=== PATIENT | female | born 1950 | race Hispanic/Latino ===

== ENCOUNTER 2017-05-20 04:11 | Inpatient (IN) | payer MEDICARE ==
[2017-05-20 04:55] LABS: #Lymphocytes 1.2 thou/uL (1.20-3.40); #Monocytes 0.5 thou/uL (0.11-0.59); #Neutrophils 3.3 thou/uL (1.40-6.50); %Basophils 0.5 % (0.0-1.0); %Eosinophils 0.8 % (0.0-10.0); %Lymphocytes 24.2 % (21.0-51.0); %Neutrophils 64.4 % (42.0-75.0); Hemoglobin 12.6 g/dL (12.0-16.0); Mean Corpuscular HGB CONC 33.3 g/dL (32.0-36.0); Mean Corpuscular Hemoglobin 29.1 pg (27.0-31.0); Mean Corpuscular Volume 87.3 fl (81.0-99.0); Mean Platelet Volume 6.6 fL (7.4-10.4); Platelet Count 251 thou/uL (130-400); RBC Distribution Width 13.5 % (11.5-14.5); Red Blood Cell (RBC) Count 4.33 mill/uL (4.20-5.40); White Blood Cell (WBC) Count 5.1 thou/uL (4.8-10.8)
[2017-05-20 05:01] LABS: Prothrombin Time 13.7 SEC (12.0-14.7)
[2017-05-20 05:02] LABS: PTT 45.2 SEC (22.9-36.1)
[2017-05-20 05:03] LABS: D-Dimer Test 2.64 *mcg/mL (0.27-0.43)
[2017-05-20 05:04] LABS: ALT (SGPT) 11 U/L (8-55); AST (SGOT) 25 U/L (5-34); Albumin 3.8 g/dL (3.4-4.8); Alkaline Phosphatase 149 U/L (40-150); Anion Gap 18 mmol/L (10-20); BUN (Urea Nitrogen) 11 mg/dL (9.8-20.1); Bilirubin, Total 0.8 mg/dL (0.2-1.2); CK (CPK) 91 U/L (29-168); Calc. Creatinine Clearance 0 mL/min (70-130); Calcium 9.4 mg/dL (7.8-10.44); Carbon Dioxide 18 mmol/L (23-31); Chloride 97 mmol/L (98-107); Estimated GFR-MDRD 64; Globulin 2.7 g/dL (2.4-3.5); Potassium 3.6 mmol/L (3.5-5.1); Protein, Total 6.5 g/dL (6.0-8.3); Sodium 129 mmol/L (136-145)
[2017-05-20 05:06] LABS: Glucose 53 mg/dL (80-115)
[2017-05-20] MEDS ORDERED: Dextrose 50% Abboject 50 ML SYRINGE ONE (05:09)
[2017-05-20 05:11] LABS: Troponin I Less than 0.010 ng/mL (< 0.028)
[2017-05-20] MEDS ORDERED: Furosemide 20 MG/2 ML VIAL ONE (06:34)
[2017-05-20 07:31] LABS: Troponin I Less than 0.010 ng/mL (< 0.028)
[2017-05-20] MEDS ORDERED: Mag-Al 1200 mg/1200 mg/30 ML UDCUP PO PRN (07:58)
[2017-05-20] MEDS ORDERED: Calcium Carbonate 500 MG ChewTAB PO PRN (07:58)
[2017-05-20] MEDS ORDERED: Milk Of Magnesia 30 ML UDCUP PO PRN (07:58)
[2017-05-20] MEDS ORDERED: Senokot 8.6 MG TAB PO PRN (07:58)
[2017-05-20] MEDS ORDERED: Guaifenesin DM 100-10/5 ML UDCUP PO PRN (07:58)
--- NOTE | 2017-05-20 08:07 | RAD ---
CHEST 1 VIEW: COMPARISON: 08/26/16. HISTORY: Dyspnea. FINDINGS: Stable vertebroplasty change. There is atherosclerosis of the aorta. Normal cardiac silhouette. Th e lungs and pleural spaces are clear. No pneumothorax or osseous abnormalities. IMPRESSION: 1. No acute cardiopulmonary process. 2. Atherosclerosis. POS: [facility]
[2017-05-20 08:21] LABS: Cardiac Risk 3.1 (Less than 4.5)
[2017-05-20] MEDS ORDERED: Hydroxychloroquine Sulfate 200 MG TAB PO SCH (09:00)
--- NOTE | 2017-05-20 09:40 | CT ---
PRELIMINARY REPORT/[facility]/EMERGENCY AFTER HOURS PROCEDURE: EXAM: CT Angiography Chest With Intravenous Contrast CLINICAL HISTORY: 66 years old, female; Signs and symptoms; Dyspnea and shortness of breath; Patient HX: F66 presents t o ed for SOB. Pt reports SOB that woke her up from sleep around 2am. Pt denies using oxygen at home. Pt reports decreased appetite for the past few weeks. Pt reports nausea and vomiting. Pt denies fever , chills, or cough. Pt reports HX of similar symptoms last year and reports it was due to pneumonia. Pt denies cardiac HX. TECHNIQUE: Axial computed tomographic angiography images of the chest with intravenous contrast using pulmonary embolism protocol. COMPARISON: No relevant prior studies available. FINDINGS: Artifacts: Examination is limited due to motion. Pulmonary arteries: No embolism is identified in the main, right, left or lobar pulmonary arteries. Evaluation of smaller pulmonary arteries is limited due to motion. Aorta: Calcifications in the barrow of the aorta and other arteries are consistent with atherosclerosi s. No thoracic aortic aneurysm or dissection is identified. Lungs: There are widespread groundglass opacities in both lungs. There is bilateral pulmonary septal thickening. There are bilateral groundglass pulmonary opacities. There are small consolidations in th e lower lobes. Pleural space: Unremarkable. No significant effusion. No pneumothorax. Heart: The heart is enlarged. There are coronary artery calcifications. There may be left ventricular hypertrophy. Bones/joints: There are old left rib fractures. There is evidence of vertebroplasty at multiple level s. No dislocation. Soft tissues: Unremarkable. Lymph nodes: There are prominent bilateral hilar lymph nodes. Spleen: Calcifications in the spleen are consistent with granulomas. IMPRESSION: 1. No central pulmonary embolism identified. 2. Evidence of pulmonary edema. 3. Small lower lobe consolidations that may represent atelectasis or pneumonia. 4. Additional findings as above. Thank you for allowing us to participate in the care of your patient. Dictated and Authenticated by: Obi Dodson MD 05/20/2017 6:14 AM Central Time ([place] & [place]) FINAL REPORT CT ANGIOGRAM OF THE CHEST: HISTORY: Dyspnea. COMPARISON: 08/26/16. TECHNIQUE: CT angiogram of the chest was performed in the axial plane. Bilateral oblique and coronal 3-dimensio nal reformatted images are submitted for interpretation. FINDINGS: This report is in agreement with the preliminary report by [facility]. No evidence of pulmonary embolism of the central pulmonary arteries. Evaluation of lobar, segment, and subsegmental arteries is limited due to timing of bolus and motion degradation. Patchy ground-glass opacities and septal thickening in the lung parenchyma. Correlate for pulmonary edema. POS: [facility]
[2017-05-20 10:51] LABS: Troponin I Less than 0.010 ng/mL (< 0.028)
[2017-05-20 11:07] VITALS: BMI 27.6
[2017-05-20] MEDS ORDERED: Dextrose 50% Abboject 50 ML SYRINGE SLOW IVP PRN (11:52)
[2017-05-20] MEDS ORDERED: Dextrose 5% in Water 1,000 ML IV PRN (11:52)
[2017-05-20] MEDS ORDERED: ISOVUE-370 76%-LOCM 1 ML ONE (13:38)
[2017-05-20] MEDS: Docusate 100 MG CAP PO SCH ×2 (14:00→20:26)
[2017-05-20] MEDS: Amlodipine 10 MG TAB PO SCH (14:00)
[2017-05-20] MEDS: Enoxaparin Sodium 40 MG/0.4 ML SYRINGE SC SCH (14:00)
[2017-05-20] MEDS: Famotidine 20 MG TAB PO SCH ×2 (14:00→20:26)
[2017-05-20] MEDS: Carvedilol 3.125 MG TAB PO SCH ×2 (14:00→20:25)
[2017-05-20] MEDS: Gabapentin 100 MG CAP PO SCH ×2 (14:00→20:26)
--- NOTE | 2017-05-20 16:35 | NM ---
NUCLEAR MEDICINE CARDIAC STRESS MYOCARDIAL PERFUSION SCAN WITH SPECT IMAGING: HISTORY: Exertional shortness of breath, chest pain. FINDINGS: Examination was performed using 29 mCi 99m Technetium sestamibi on the stress and 9 mCi on the restin g images. This shows a normal distribution of radiopharmaceutical without signs of ischemia or scar. WALL MOTION: There is symmetric contractility to the ventricle. LEFT VENTRICULAR EJECTION FRACTION: The calculated left ventricular ejection fraction is 84%. IMPRESSION: Unremarkable myocardial perfusion scan. POS: [facility]
[2017-05-20] MEDS ORDERED: Regadenoson 0.4 MG/5 ML SYRINGE ONE (16:41)
[2017-05-20] MEDS: Albuterol Sulfate 2.5 mg/3 ml Neb NEB SCH ×2 (19:00→19:03)
--- NOTE | 2017-05-20 19:01 | HP ---
REASON FOR ADMISSION: Exertional shortness of breath. HISTORY OF PRESENTING ILLNESS: The patient gives history of going to [place] early in the morning a round 3:00 a.m. While she was trying to come back, the patient had sudden onset of shortness of lucy th. She had similar episode 2 years back and had saturations dropping down to 72% then. This mornin g too her saturations dropped to 69%. Her fingerstick glucose at home was 69 and on arrival here was 53. The patient states she has loss of appetite from 3 days. No complaints of fever or chest pain as such. No complaints of cough or expectoration. PAST MEDICAL AND SURGICAL HISTORY: History of lupus from last 20 years and follows up with Dr. Emeterio basurto. She has history of asthma, follows up with Dr. De Guzman. The patient also follows up with Dr. Se bear for apparently kidney issues, but currently it is within normal limits. She also follows up w [facility] from Dr. Garcia for her multiple vertebral fractures and has had recent kyphoplasty as well. She has had shots placed to bilateral hips a month back and last week she had shots placed to the shoulder and in the lower back area. Hysterectomy; cataract surgeries; history of diverticul itis with partial colon removal; and history of asthma, which appears to be fairly stable with the pa tient using nebulizer once a day and her inhaler on a p.r.n. basis. CURRENT MEDICATIONS: The patient is on Norvasc 10 mg p.o. daily, azathioprine 50 mg p.o. daily, Cola ce 100 mg p.o. twice daily, gabapentin 300 mg p.o. twice daily, hydroxychloroquine 300 mg p.o. twice daily, Protonix 40 mg p.o. daily. ALLERGIES: PSEUDOEPHEDRINE and MORPHINE. MORPHINE causes hallucinations. PERSONAL HISTORY: Does not abuse alcohol or drugs. No history of smoking. Lives with her . FAMILY HISTORY: Mom at the age of 42 years. She of aneurysm and complications. She has h ad history of hypertension as well. Father at the age of 87 years. He has had history of CHF. REVIEW OF SYSTEMS: The following complete review of systems was negative, unless otherwise mentioned in the HPI or below: Constitutional: Weight loss or gain, ability to conduct usual activities. Skin: Rash, itching. Eyes: Double vision, pain. ENT/Mouth: Nose bleeding, neck stiffness, pain, tenderness. Cardiovascular: Palpitations, dyspnea on exertion, orthopnea. Respiratory: Shortness of breath, wheezing, cough, hemoptysis, fever or night sweats. Gastrointestinal: Poor appetite, abdominal pain, heartburn, nausea, vomiting, constipation, or diarr hea. Genitourinary: Urgency, frequency, dysuria, nocturia. Musculoskeletal: Pain, swelling. Neurologic/Psychiatric: Anxiety, depression. Allergy/Immunologic: Skin rash, bleeding tendency. PHYSICAL EXAMINATION: GENERAL: The patient is a 66-year-old female, who is currently not in any acute distress. VITAL SIGNS: Blood pressure on arrival was 100/66, pulse 100 per minute, respiratory rate 16 per min minerva, temperature 98 degrees Fahrenheit, saturating 100% on room air. NECK: Supple, no elevated JVD. HEENT: Eyes: Extraocular muscles intact. Pupils are reacting to light. Oral cavity: Mucous membr anes are moist. No exudates or congestion. CARDIOVASCULAR: S1, S2 heard. Regular rhythm. RESPIRATORY: Air entry 1+ bilateral. There is basal rales plus, scattered rhonchi plus, no wheezes. ABDOMEN: Soft, bowel sounds heard. No tenderness, rigidity or guarding. EXTREMITIES: No peripheral edema or calf tenderness. VASCULAR SYSTEM: Peripheral pulses 1+ bilateral, no ischemic ulcerations or gangrene. CENTRAL NERVOUS SYSTEM: No gross focal deficits seen. The patient is alert and oriented well. PSYCHIATRIC: The patient's mood is euthymic. No hallucinations or delusions. LABORATORY AND X-RAY FINDINGS: Sodium 129, serum bicarbonate 18, BUN 11, creatinine 0.8, serum gluco se was 53 on arrival, lactic acid 1.5. Liver enzymes are within normal limits. Troponin x2 is negat sharri. BNP is 39, albumin is 3.8. INR is 1.0. PT 13, PTT 45. White count of 5, hemoglobin and hemat ocrit 12 and 37, platelet count 251 with 64% neutrophils, MCV is 87. CT angio chest done shows no ev idence of PE. There is a questionable ground glass opacities with septal thickening in the lung pare nchyma to correlate for pulmonary edema. EKG done shows normal sinus rhythm at 97 beats per minute. CLINICAL IMPRESSION AND PLAN: The patient will be under observation on telemetry for new onset exert ional dyspnea. She has received a dose of Lasix 40 mg in the ER. The patient has multiple risk fact ors for heart disease. She has had a CT angio chest done, which showed no evidence of pulmonary embo lism. We will obtain echo with 2D Doppler for left ventricular function and a nuclear stress test as well. The patient does not recall having had a stress test in her life so far. She will also be on albuterol nebulizer q.[address] her on aspirin and continue on Norvasc, azathioprine, hydroxychloroquine, gabapentin, and Colace as before. We will closely monitor her on telemetry.
[2017-05-20] MEDS: Hydroxychloroquine Sulfate 200 MG TAB PO SCH (20:26)
[2017-05-21] MEDS: Albuterol Sulfate 2.5 mg/3 ml Neb NEB SCH ×4 (00:24→19:51)
[2017-05-21 05:02] LABS: #Eosinphils 0.1 thou/uL (0.0-0.7); #Lymphocytes 0.9 thou/uL (1.20-3.40); #Monocytes 0.6 thou/uL (0.11-0.59); %Basophils 0.5 % (0.0-1.0); %Eosinophils 1.8 % (0.0-10.0); %Lymphocytes 19.7 % (21.0-51.0); %Monocytes 12.1 % (0.0-10.0); Hemoglobin 12.2 g/dL (12.0-16.0); Mean Corpuscular HGB CONC 34.3 g/dL (32.0-36.0); Mean Corpuscular Hemoglobin 29.6 pg (27.0-31.0); Mean Corpuscular Volume 86.3 fl (81.0-99.0); Mean Platelet Volume 6.8 fL (7.4-10.4); Platelet Count 233 thou/uL (130-400); RBC Distribution Width 13.8 % (11.5-14.5); Red Blood Cell (RBC) Count 4.11 mill/uL (4.20-5.40); White Blood Cell (WBC) Count 4.6 thou/uL (4.8-10.8)
[2017-05-21 05:14] LABS: Anion Gap 15 mmol/L (10-20); BUN (Urea Nitrogen) 11 mg/dL (9.8-20.1); Calc. Creatinine Clearance 46 mL/min (70-130); Carbon Dioxide 20 mmol/L (23-31); Chloride 99 mmol/L (98-107); Estimated GFR-MDRD 46; Potassium 3.5 mmol/L (3.5-5.1); Sodium 130 mmol/L (136-145)
[2017-05-21 05:15] LABS: Calcium 8.6 mg/dL (7.8-10.44); Glucose 66 mg/dL (80-115)
[2017-05-21] MEDS: Hydroxychloroquine Sulfate 200 MG TAB PO SCH ×2 (09:44→20:39)
[2017-05-21] MEDS: Aspirin 325 MG TAB PO SCH (09:44)
[2017-05-21] MEDS: Amlodipine 10 MG TAB PO SCH (09:45)
[2017-05-21] MEDS: Famotidine 20 MG TAB PO SCH ×2 (09:45→20:37)
[2017-05-21] MEDS: azaTHIOprine 50 MG TAB PO SCH (09:45)
[2017-05-21] MEDS: Gabapentin 100 MG CAP PO SCH ×2 (09:45→20:38)
[2017-05-21] MEDS: Docusate 100 MG CAP PO SCH ×2 (09:45→20:37)
[2017-05-21] MEDS: Enoxaparin Sodium 40 MG/0.4 ML SYRINGE SC SCH (09:45)
[2017-05-21] MEDS: Carvedilol 3.125 MG TAB PO SCH ×2 (09:45→20:38)
[2017-05-21] MEDS ORDERED: Vancomycin HCl 750 MG, Admixture Fee 1 EACH in Sodium Chloride 0.9% 250 ML 250 ML IVPB SCH (11:00)
[2017-05-21 11:19] LABS: Bilirubin Negative (Negative); Blood, Urine Negative (Negative); Clarity CLEAR (Clear); Glucose, Urine (Dipstick) Negative (Negative); Leukocyte Small (Negative); Nitrite Negative (Negative); Protein, Urine (Dipstick) Negative (Neg-Trace); Specific Gravity, Urine 1.019 (1.002-1.036); Urobilinogen 0.2 mg/dL (0.2-1.0); pH, Urine 5.5 (5.0-9.0)
[2017-05-21 11:23] LABS: Bacteria/HPF None Seen HPF (None Seen); Hyaline Casts/LPF 0-3 HYALINE CAST LPF (0-3 Hyaline); Pathc Cast-AUWi Flag 0.27 (0-2.49); WBC/HPF 0-3 HPF (0-3)
--- NOTE | 2017-05-21 11:32 | PDOC.PN ---
- Subjective Encounter Start Date: 05/21/17 Encounter Start Time: 08:30 Subjective: had fever this am of 100, feels weak -: no urinary freq or urgency -: has loss of appetite - Objective MAR Reviewed: Yes Vital Signs & Weight: Vital Signs (12 hours) Temp Pulse Resp 05/21/17 10:25 99.8 F H 87 20 05/21/17 09:45 87 Result Diagrams: 05/21/17 04:31 05/21/17 04:31 Phys Exam - Physical Examination HEENT: PERRLA, moist MMs Neck: no JVD, supple Respiratory: no wheezing, no rales Cardiovascular: RRR, no significant murmur Gastrointestinal: soft, non-tender, positive bowel sounds Musculoskeletal: no edema, pulses present Neurological: non-focal, moves all 4 limbs Psychiatric: A&O x 3 Dx/Plan (1) Sepsis Code(s): A41.9 - SEPSIS, UNSPECIFIED ORGANISM Status: Suspected Qualifiers: Sepsis type: sepsis due to unspecified organism Qualified Code(s): A41.9 - Sepsis, unspecified organism (2) Hyponatremia Code(s): E87.1 - HYPO-OSMOLALITY AND HYPONATREMIA Status: Acute (3) Anemia Code(s): D64.9 - ANEMIA, UNSPECIFIED Status: Chronic Qualifiers: Anemia type: unspecified type Qualified Code(s): D64.9 - Anemia, unspecified (4) HTN (hypertension) Code(s): I10 - ESSENTIAL (PRIMARY) HYPERTENSION Status: Chronic Qualifiers: Hypertension type: essential hypertension (5) SLE (systemic lupus erythematosus) Code(s): M32.9 - SYSTEMIC LUPUS ERYTHEMATOSUS, UNSPECIFIED Status: Chronic - Plan is immunosuppressed on azathioprine and chloroquine for lupus -: hypoglycemia with fever, prelim blood cs are -ve, urine cs pending -: will request ID consult to r/o sepsis, empiric vanc and zosyn for now -: usg venous doppler, sod is better, gentle hydration -: stress test is -ve, echo no obvious veg, ef is good * . change status to inpatient due to reasons mentioned above. Review of Systems - Medications/Allergies Allergies/Adverse Reactions: Allergies Allergy/AdvReac Type Severity Reaction Status Date / Time pseudoephedrine Allergy Verified 05/20/17 11:08 [From Sudafed] morphine AdvReac Intermediate Verified 08/26/16 14:48 Medications: Current Medications Acetaminophen (Tylenol) 650 mg PO Q4H PRN PRN Reason: Headache/Fever or Pain Al Hydroxide/Mg Hydroxide (Maalox) 30 ml PO Q6H PRN PRN Reason: Heartburn or Indigestion Albuterol Sulfate (Ventolin) 2.5 mg NEB [id number] [facility] Last Admin: 05/21/17 06:22 Dose: 2.5 mg Amlodipine Besylate (Norvasc) 10 mg PO DAILY [facility] Last Admin: 05/21/17 09:45 Dose: 10 mg Aspirin (Aspirin) 325 mg PO DAILY [facility] Last Admin: 05/21/17 09:44 Dose: 325 mg Azathioprine (Imuran) 50 mg PO DAILY [facility] Last Admin: 05/21/17 09:45 Dose: 50 mg Calcium Carbonate (Tums) 1,000 mg PO Q4H PRN PRN Reason: Heartburn or Indigestion Carvedilol (Coreg) 3.125 mg PO BID [facility] Last Admin: 05/21/17 09:45 Dose: 3.125 mg Dextrose/Water (Dextrose 50%) 25 gm SLOW IVP PRN PRN PRN Reason: Hypoglycemia Docusate Sodium (Colace) 100 mg PO BID [facility] Last Admin: 05/21/17 09:45 Dose: 100 mg Enoxaparin Sodium (Lovenox) 40 mg SC 0900 [facility] Last Admin: 05/21/17 09:45 Dose: 40 mg Famotidine (Pepcid) 20 mg PO BID [facility] Last Admin: 05/21/17 09:45 Dose: 20 mg Gabapentin (Neurontin) 100 mg PO BID [facility] Last Admin: 05/21/17 09:45 Dose: 100 mg Glucagon (Glucagon) 1 mg IM PRN PRN PRN Reason: Hypoglycemia Guaifenesin/Dextromethorphan (Robitussin Dm) 15 ml PO Q4H PRN PRN Reason: Cough Hydroxychloroquine Sulfate (Plaquenil) 300 mg PO BID [facility] Last Admin: 05/21/17 09:44 Dose: 300 mg Dextrose/Water (D5w) 1,000 mls @ 0 mls/hr IV .Q0M PRN; As Directed PRN Reason: Hypoglycemia Piperacillin Sod/Tazobactam (Sod 3.375 gm/ Sodium Chloride) 100 mls @ 200 mls/ hr IVPB Q6HR [facility] Vancomycin HCl 750 mg/Miscellaneous Medication 1 each/ Sodium Chloride 250 mls @ 250 mls/hr IVPB 1100 [facility] Magnesium Hydroxide (Milk Of Magnesium) 30 ml PO DAILYPRN PRN PRN Reason: Constipation Miscellaneous Medication (Pharmacy To Dose) 0 each IVPB ASDIR [facility] Senna (Senokot) 2 tab PO HSPRN PRN PRN Reason: Constipation Sodium Chloride (Flush - Normal Saline) 10 ml IVF Q12HR [facility] Sodium Chloride (Flush - Normal Saline) 10 ml IVF PRN PRN PRN Reason: Saline Flush
[2017-05-21] MEDS: Piperacillin/Tazobactam 3.375 GM in Sodium Chloride 0.9% 100 ML IVPB SCH ×3 (13:37→23:19)
[2017-05-21] MEDS: Dextrose 5 % And 0.9 % NaCl 1,000 ML IV SCH (13:37)
--- NOTE | 2017-05-21 13:40 | ULT ---
BILATERAL LOWER EXTREMITY VENOUS DUPLEX EXAM: Date: 05/21/17 HISTORY: Bilateral leg pain and edema. FINDINGS: Real-time color Doppler evaluation of right and left lower extremity was performed from groin to calf . This includes evaluation of the common femoral, superficial and profunda femoral, saphenous, poplit eal, and trifurcation veins. This shows patent deep venous systems bilaterally. There is normal compr essibility and augmentation. There is no evidence of deep venous thrombosis. IMPRESSION: No evidence of deep venous thrombosis of either lower extremity. POS: [facility]
[2017-05-21] MEDS ORDERED: Vancomycin HCl 1 GM in Premix Bag 1 BAG IVPB SCH (21:00)
--- NOTE | 2017-05-21 21:06 | CON ---
DATE OF CONSULTATION: 05/21/2017 REASON FOR CONSULTATION: Dyspnea, hypoxemia, and pulmonary infiltrates. HISTORY OF PRESENT ILLNESS: A 66-year-old patient who has a longstanding history of systemic lupus erythematosus with pulmonary involvement. Patient has previous episode of severe alveolar hemorrhage, which required ICU admission and mechanical ventilation. She has had some episodes of UTI, but most of her admissions are related to the pulmonary complications of SLE reportedly. She had a 08/2016 CT scan, which showed patchy densities lower lobes bilaterally without mediastinal involvement. The laboratory data include a positive PHILL screen on 08/2016 with SS-A/Ro IgG antibody level of 1.1. The double-stranded DNA antibody was less than 1 and C3 and C4 were within normal limits. This time, she was in her usual state until the day of admission when she developed fairly rapid onset of dyspnea after going to the restroom 3 in the morning. She has an oximeter in her home and measured 67% pulse oximetry. Patient was brought to the emergency room and admitted. Initial exam showed blood pressure 100/66, pulse 100, respirations 16, temperature 98, O2 sat 100%. Neck was supple. Eye examination was normal. Lungs with inspiratory crackles. The abdomen and heart examinations normal. The neuro examination was normal. INITIAL LABORATORY DATA: White cell count is 5.1. Other findings were normal in the CBC. INR 1.0, aPTT 45. Sodium 129, creatinine 0.88 with normal liver profile, albumin 3.8. Urinalysis with essentially normal results. Two sets of blood cultures thus far no growth. The CT of chest showed no pulmonary embolism , and she has evidence of diffuse bilateral ground-glass opacities. Patient had an echocardiogram, which showed some suggestive findings of diastolic dysfunction, EF 55%-60%, mild mitral regurgitation, mild dilatation of left atrium. Aortic valve is sclerotic with normal excursion. Trace tricuspid regurgitation. Currently, Ms. Orlando is feeling a little better. She is pleasant. No headaches, no visual symptoms, sore throat, odynophagia, dysphagia , still with some dyspnea, but milder. No chest pain, had some sputum production on and off. No hemoptysis. No joint symptoms. No abdominal pain, no genitourinary symptoms. PAST MEDICAL HISTORY: Systemic lupus erythematosus, mostly with lung involvement evidence of pulmonary hemorrhage in the past with bronchoscopy. She also had lung biopsy obtained through bronchoscopy, which showed nonspecific inflammatory changes. The patient has always had negative double- stranded DNA antibodies. Her SS-B/La IgG antibody was positive in 10/12 at 2.1. The SS-A/Ro IgG antibody was very elevated at greater than 8 on 10/2013. The complement was not measured more than once. The anti-U1 [employer]GER was always within normal limits. The Guevara antibody was always within normal limits. She never had significant proteinuria and no evidence of significant nephropathy except for once or twice mostly in 2014. Current meds had been on Norvasc, Imuran, Colace, gabapentin, hydroxychloroquine, and prednisone had been discontinued for the past 2 months. She has all had been on Protonix as well. ALLERGIES: PSEUDOEPHEDRINE, MORPHINE. SOCIAL HISTORY: Never smoker, , lives with in town. FAMILY HISTORY: Noncontributory. PHYSICAL EXAMINATION: VITAL SIGNS: T-max 100.3 on 05/20, she has been afebrile since. BP 90/50, pulse 75, respirations 16, O2 sat 95%. GENERAL: Appears no distress. SKIN: Normal. Patient has a peripheral IV access. No Alas catheter. No lymphadenopathy. HEENT: Ocular movements conjugate. Sclerae white. Pupils are equal. Oral cavity normal still quite a few teeth in place with the expected decay. NECK: Supple. No jugular vein distention. LUNGS: With quite course and prominent bilateral inspiratory crackles up to 2/ 3 of right and left hemithorax. No wheezing. CARDIOVASCULAR: S1, S2, regular rate. No S3, S4. ABDOMEN: Soft, not distended or tender. No ascites. No bladder distention. EXTREMITIES: No joint inflammatory activity noted. Pulses are 1+ dorsalis pedis. NEUROLOGIC: No edema. LABORATORY DATA: The labs have been reviewed above. The latest WBC count 4.6, hemoglobin 12, platelets 233. Reports include a venogram from 05/21/2017, which showed no evidence of deep vein thrombosis. ASSESSMENT: History of systemic lupus erythematosus. Her diagnosis is based on a positive SS-A and SS-B auto antibodies associated with pulmonary manifestations. This is somewhat atypical for the usual case of lupus, although I have not seen her presentation previously. She certainly does not have significant evidence of arthritis or kidney involvement or other systemic involvement. She now presents with acute dyspnea with ground-glass opacities and evidence of interstitial pneumonitis right and left lung. Clinically significant chronic interstitial pneumonitis complicates systemic lupus erythematosus in a minority of patients, but it is rarely severe. s Symptomatic chronic interstitial pneumonitis is rare and usually not a dominant feature of SLE as in this patient. Severe pulmonary fibrosis is rare. She does have proven chronic inflammatory cell infiltrates in the previously completed lung biopsy by Dr. De Guzman. Some studies have found association between lupus pneumonitis and anti-SS-A antibodies. The entity of acute lupus pneumonitis still yet somewhat controversial, other factors need to be considered such as infection, aspiration, or cardiac dysfunction. Acute alveolar hemorrhage has been documented in this patient and it is quite rare in SLE, but potentially catastrophic complication of lupus and presentations include anemia, diffuse alveolar infiltrates and hypoxemia. This time, it does not appear that she has evidence to suggest alveolar hemorrhage, although sometimes it may not be obvious on the clinical evaluation. Alveolar hemorrhage usually occurs in patient with active extrapulmonary disease, although it may present as the initial clinical manifestation in some patients. Finally, the syndrome of acute reversible hypoxemia syndrome can present secondary to an occlusive vasculopathy. The possibility of veno-occlusive disease needs to be considered in this kind of presentation. Most cases respond to high dose corticosteroids. Thromboembolism has been ruled out effectively and at this point, I would believe that her symptoms are unlikely due to an infection but more likely due to acute hypoxemia syndrome probably secondary to veno-occlusive disease and acute lupus pneumonitis is another possibility, both to be managed with an increasing dose of corticosteroids, which had been discontinued two months ago. If the cultures remain negative, I would discontinue antimicrobials. ANTONIAD
[2017-05-21] MEDS: Acetaminophen 325 MG TAB PO PRN (23:18)
[2017-05-22] MEDS: Albuterol Sulfate 2.5 mg/3 ml Neb NEB SCH ×4 (00:35→20:05)
[2017-05-22] MEDS: Dextrose 5 % And 0.9 % NaCl 1,000 ML IV SCH (05:00)
[2017-05-22] MEDS: Piperacillin/Tazobactam 3.375 GM in Sodium Chloride 0.9% 100 ML IVPB SCH (05:07)
[2017-05-22 05:19] LABS: #Lymphocytes 0.6 thou/uL (1.20-3.40); #Monocytes 0.6 thou/uL (0.11-0.59); #Neutrophils 2.8 thou/uL (1.40-6.50); %Basophils 0.8 % (0.0-1.0); %Eosinophils 0.6 % (0.0-10.0); %Lymphocytes 15.8 % (21.0-51.0); %Monocytes 13.9 % (0.0-10.0); %Neutrophils 68.9 % (42.0-75.0); Hemoglobin 10.7 g/dL (12.0-16.0); Mean Corpuscular HGB CONC 33.6 g/dL (32.0-36.0); Mean Corpuscular Hemoglobin 29.2 pg (27.0-31.0); Mean Corpuscular Volume 86.8 fl (81.0-99.0); Mean Platelet Volume 6.8 fL (7.4-10.4); Platelet Count 180 thou/uL (130-400); RBC Distribution Width 13.8 % (11.5-14.5); Red Blood Cell (RBC) Count 3.68 mill/uL (4.20-5.40)
[2017-05-22 05:32] LABS: Anion Gap 10 mmol/L (10-20); BUN (Urea Nitrogen) 12 mg/dL (9.8-20.1); Calc. Creatinine Clearance 49 mL/min (70-130); Calcium 8.2 mg/dL (7.8-10.44); Carbon Dioxide 21 mmol/L (23-31); Chloride 101 mmol/L (98-107); Estimated GFR-MDRD 49; Glucose 100 mg/dL (80-115); Potassium 3.1 mmol/L (3.5-5.1); Sodium 129 mmol/L (136-145)
[2017-05-22] MEDS: Amlodipine 10 MG TAB PO SCH (09:27)
[2017-05-22] MEDS: Aspirin 325 MG TAB PO SCH (09:27)
[2017-05-22] MEDS: Carvedilol 3.125 MG TAB PO SCH ×2 (09:28→21:36)
[2017-05-22] MEDS: Docusate 100 MG CAP PO SCH ×2 (09:28→21:31)
[2017-05-22] MEDS: azaTHIOprine 50 MG TAB PO SCH (09:30)
[2017-05-22] MEDS: Gabapentin 100 MG CAP PO SCH ×2 (09:30→21:36)
[2017-05-22] MEDS: Famotidine 20 MG TAB PO SCH ×2 (09:30→21:37)
[2017-05-22] MEDS: Enoxaparin Sodium 40 MG/0.4 ML SYRINGE SC SCH (09:31)
[2017-05-22] MEDS: Hydroxychloroquine Sulfate 200 MG TAB PO SCH ×2 (09:40→21:35)
--- NOTE | 2017-05-22 11:33 | PDOC.PN ---
- Subjective Encounter Start Date: 05/22/17 Encounter Start Time: 10:00 Subjective: no sob, feels better - Objective MAR Reviewed: Yes Vital Signs & Weight: Vital Signs (12 hours) Temp Pulse Resp BP BP Pulse Ox 05/22/17 09:27 63 94/47 L 05/22/17 07:55 97.6 F 63 20 94/47 L 98 05/22/17 07:51 99 05/22/17 07:49 60 14 99 05/22/17 03:35 98.0 F 63 20 91/47 L 98 05/22/17 00:35 69 14 99 05/21/17 23:09 100.8 F H 73 16 95/50 L 96 I&O: 05/21/17 05/22/17 05/23/17 05:59 06:59 06:59 Intake Total Balance Result Diagrams: 05/22/17 05:03 05/22/17 05:03 Additional Labs: Accuchecks 05/22/17 05/21/17 05/21/17 05:14 20:13 17:49 POC Glucose 116 H 108 95 05/21/17 11:35 POC Glucose 89 Phys Exam - Physical Examination HEENT: PERRLA, sclera anicteric Neck: no JVD, supple Respiratory: no wheezing, no rales Cardiovascular: RRR, no significant murmur Gastrointestinal: soft, non-tender, positive bowel sounds Musculoskeletal: no edema, pulses present Neurological: non-focal, moves all 4 limbs Psychiatric: A&O x 3 Dx/Plan (1) Sepsis Code(s): A41.9 - SEPSIS, UNSPECIFIED ORGANISM Status: Ruled-out Qualifiers: Sepsis type: sepsis due to unspecified organism Qualified Code(s): A41.9 - Sepsis, unspecified organism (2) Hyponatremia Code(s): E87.1 - HYPO-OSMOLALITY AND HYPONATREMIA Status: Acute (3) Anemia Code(s): D64.9 - ANEMIA, UNSPECIFIED Status: Chronic Qualifiers: Anemia type: unspecified type Qualified Code(s): D64.9 - Anemia, unspecified (4) HTN (hypertension) Code(s): I10 - ESSENTIAL (PRIMARY) HYPERTENSION Status: Chronic Qualifiers: Hypertension type: essential hypertension (5) SLE (systemic lupus erythematosus) Code(s): M32.9 - SYSTEMIC LUPUS ERYTHEMATOSUS, UNSPECIFIED Status: Chronic - Plan likely lung involvement with lupus -: sepsis is ruled out, cultures are -ve -: start steroids, dc d5ns iv fluids -: hemostable -: to amb as tolerated * . Review of Systems - Medications/Allergies Allergies/Adverse Reactions: Allergies Allergy/AdvReac Type Severity Reaction Status Date / Time pseudoephedrine Allergy Verified 05/20/17 11:08 [From Sudafed] morphine AdvReac Intermediate Verified 08/26/16 14:48 Medications: Current Medications Acetaminophen (Tylenol) 650 mg PO Q4H PRN PRN Reason: Headache/Fever or Pain Last Admin: 05/21/17 23:18 Dose: 650 mg Al Hydroxide/Mg Hydroxide (Maalox) 30 ml PO Q6H PRN PRN Reason: Heartburn or Indigestion Albuterol Sulfate (Ventolin) 2.5 mg NEB [id number] [facility] Last Admin: 05/22/17 07:49 Dose: 2.5 mg Amlodipine Besylate (Norvasc) 10 mg PO DAILY [facility] Last Admin: 05/22/17 09:27 Dose: Not Given Aspirin (Aspirin) 325 mg PO DAILY [facility] Last Admin: 05/22/17 09:27 Dose: 325 mg Azathioprine (Imuran) 50 mg PO DAILY [facility] Last Admin: 05/22/17 09:30 Dose: 50 mg Calcium Carbonate (Tums) 1,000 mg PO Q4H PRN PRN Reason: Heartburn or Indigestion Carvedilol (Coreg) 3.125 mg PO BID [facility] Last Admin: 05/22/17 09:28 Dose: Not Given Dextrose/Water (Dextrose 50%) 25 gm SLOW IVP PRN PRN PRN Reason: Hypoglycemia Docusate Sodium (Colace) 100 mg PO BID [facility] Last Admin: 05/22/17 09:28 Dose: 100 mg Enoxaparin Sodium (Lovenox) 40 mg SC 0900 [facility] Last Admin: 05/22/17 09:31 Dose: 40 mg Famotidine (Pepcid) 20 mg PO BID [facility] Last Admin: 05/22/17 09:30 Dose: 20 mg Gabapentin (Neurontin) 100 mg PO BID [facility] Last Admin: 05/22/17 09:30 Dose: 100 mg Glucagon (Glucagon) 1 mg IM PRN PRN PRN Reason: Hypoglycemia Guaifenesin/Dextromethorphan (Robitussin Dm) 15 ml PO Q4H PRN PRN Reason: Cough Hydroxychloroquine Sulfate (Plaquenil) 300 mg PO BID [facility] Last Admin: 05/22/17 09:40 Dose: 300 mg Dextrose/Water (D5w) 1,000 mls @ 0 mls/hr IV .Q0M PRN; As Directed PRN Reason: Hypoglycemia Magnesium Hydroxide (Milk Of Magnesium) 30 ml PO DAILYPRN PRN PRN Reason: Constipation Methylprednisolone Sodium Succinate (Solu-Medrol) 40 mg IVP Q6HR [facility] Miscellaneous Medication (Pharmacy To Dose) 0 each IVPB ASDIR KENNY Senna (Senokot) 2 tab PO HSPRN PRN PRN Reason: Constipation Sodium Chloride (Flush - Normal Saline) 10 ml IVF Q12HR [facility] Last Admin: 05/22/17 09:31 Dose: 10 ml Sodium Chloride (Flush - Normal Saline) 10 ml IVF PRN PRN PRN Reason: Saline Flush
[2017-05-23] MEDS: Acetaminophen 325 MG TAB PO PRN (00:10)
[2017-05-23] MEDS: Albuterol Sulfate 2.5 mg/3 ml Neb NEB SCH ×2 (00:58→08:06)
[2017-05-23] MEDS ORDERED: HumaLOG 300 UNITS/3 ML VIAL SC PRN (02:30)
[2017-05-23 08:06] VITALS: BP 117/68; TEMP 98.5
--- NOTE | 2017-05-23 08:07 | PDOC.PN ---
- Subjective Encounter Start Date: 05/23/17 Encounter Start Time: 09:20 Subjective: Patient off oxygen. Breathing much better. Ambulating well in the hallways. -: Ready to go home. - Objective MAR Reviewed: Yes Vital Signs & Weight: Vital Signs (12 hours) Temp Pulse Resp BP Pulse Ox 05/23/17 04:00 97.8 F 83 20 123/60 97 05/23/17 00:58 83 14 99 05/23/17 00:00 98.6 F 81 20 125/58 L 95 I&O: 05/22/17 05/23/17 05/24/17 06:59 06:59 06:59 Intake Total 790 Balance 790 Result Diagrams: 05/22/17 05:03 05/22/17 05:03 Additional Labs: Accuchecks 05/23/17 05/22/17 05/22/17 05:46 20:18 15:53 POC Glucose 140 H 220 H 184 H 05/22/17 11:46 POC Glucose 114 H Phys Exam - Physical Examination Constitutional: NAD HEENT: moist MMs Respiratory: no wheezing, no rhonchi bilateral dry rales, worse on right, no increased WOB Cardiovascular: RRR, no significant murmur Gastrointestinal: soft, positive bowel sounds Musculoskeletal: no edema Neurological: non-focal, moves all 4 limbs Psychiatric: normal affect, A&O x 3 Dx/Plan (1) Acute respiratory failure with hypoxia Code(s): J96.01 - ACUTE RESPIRATORY FAILURE WITH HYPOXIA Status: Resolved Comment: Resolved, likely secondary to acute lupus pneumonitis vs. occlusive vasculopathy, currently on high dose IV steroids. Appreciate Dr. Davis' imput. (2) Hyponatremia Code(s): E87.1 - HYPO-OSMOLALITY AND HYPONATREMIA Status: Acute Comment: stable (3) SLE exacerbation Code(s): M32.9 - SYSTEMIC LUPUS ERYTHEMATOSUS, UNSPECIFIED Status: Chronic (4) Anemia Code(s): D64.9 - ANEMIA, UNSPECIFIED Status: Chronic Qualifiers: Anemia type: unspecified type Qualified Code(s): D64.9 - Anemia, unspecified (5) HTN (hypertension) Code(s): I10 - ESSENTIAL (PRIMARY) HYPERTENSION Status: Chronic Qualifiers: Hypertension type: essential hypertension Qualified Code(s): I10 - Essential (primary) hypertension - Plan cont current plan of care No further hypoxia since admission, will switch to oral prednisone and have -: f/u with rheumatology as scheduled for next week * .
[2017-05-23] MEDS: azaTHIOprine 50 MG TAB PO SCH (08:41)
[2017-05-23] MEDS: Hydroxychloroquine Sulfate 200 MG TAB PO SCH (08:41)
[2017-05-23] MEDS: Amlodipine 10 MG TAB PO SCH (08:41)
[2017-05-23] MEDS: Gabapentin 100 MG CAP PO SCH (08:41)
[2017-05-23] MEDS: Aspirin 325 MG TAB PO SCH (08:41)
[2017-05-23] MEDS: Carvedilol 3.125 MG TAB PO SCH (08:41)
[2017-05-23] MEDS: Enoxaparin Sodium 40 MG/0.4 ML SYRINGE SC SCH (08:42)
[2017-05-23] MEDS: Docusate 100 MG CAP PO SCH (08:42)
[2017-05-23] MEDS: Famotidine 20 MG TAB PO SCH (08:42)
[2017-05-23] MEDS ORDERED: Potassium Chloride 20 MEQ TAB PO SCH (10:00)
[2017-05-23] MEDS ORDERED: predniSONE 20 MG TAB PO SCH (12:00)
--- NOTE | 2017-05-23 12:01 | DIS ---
PRIMARY CARE PHYSICIAN: Dr. Kyle Washington PRIMARY CATALOGUE COMPILER: Dr. Johnson. ADMISSION DIAGNOSES: 1. Exertional dyspnea. 2. Lupus. DISCHARGE DIAGNOSES: 1. Acute hypoxic respiratory failure, resolved, likely secondary to acute lupus pneumonitis versus o cclusive vasculopathy. 2. Hyponatremia, stable. 3. Lupus exacerbation, improved. 4. Chronic anemia. 5. Hypertension. 6. Chronic pain from multiple vertebral fractures. 7. Hypokalemia. CONSULTATIONS: Dr. Davis, Infectious Disease. PROCEDURES: 1. CT angiography of the chest showing no evidence for pulmonary embolism and had some patchy ground glass opacities and septal thickening of the lung parenchyma concerning for possible pulmonary edema . 2. Nuclear medicine stress test showing an unremarkable myocardial perfusion scan. 3. Echocardiogram showing ejection fraction of 55-60% as well as diastolic dysfunction. 4. Venogram of bilateral legs for edema showing no evidence of DVT. PERTINENT LABORATORY DATA: Sodium stable between 129 and 130. Potassium the day of discharge down t o 3.1, replacing orally. Cardiac marker set is negative x3. Brain natriuretic peptide was normal at 39, creatinine was normal. SUMMARY OF HOSPITAL COURSE: This is a 66-year-old white female with a known history of lupus, follow s with Dr. Johnson, has been off prednisone for a while now. She came in with a drop of her oxygen s aturation along with shortness of breath. Her O2 sats were reportedly down to 69%. She had a simila r episode 2 years ago. She was also noted to have some low blood sugar in the 50s on arrival. The p atient was put in the hospital. She had procedures done as above. Dr. Davis was consulted for cici rn for possible infection as the source of her hypoxia. Of note her hypoxia resolved in the hospital , she did not need any further oxygen. Dr. Davis determined that this was likely of lupus pneumoniti s versus an occlusive vasculopathy and recommended high dose steroids. She was put on Solu-Medrol 40 mg 4 times a day during hospitalization with resolution of her symptoms, ambulating well, saturating well on room air. She is being transitioned to oral steroids and will be discharged home. She has a follow up already scheduled with her early morning babysitter. DISCHARGE MANAGEMENT: Discharged home. Follow up with Dr. Washington later this week [facility] as already scheduled. ACTIVITIES: As tolerated. DISCHARGE DIET: Healthy heart diet. DISCHARGE MEDICATIONS: 1. Hydroxychloroquine 300 mg twice a day. 2. Azathioprine 50 mg daily. 3. Gabapentin 300 mg twice a day. 4. Colace 100 mg twice a day. 5. Norvasc 10 mg daily. 6. Protonix 20 mg daily. 7. Prednisone 20 mg 3 times a day, 42 tablets dispensed. 8. Carvedilol 3.125 mg twice a day. 9. Aspirin 325 mg daily.
--- NOTE | 2017-06-15 15:51 | EKG ---
Test Reason : Blood Pressure : / mmHG Vent. Rate : 097 BPM Atrial Rate : 097 BPM P-R Int : 132 ms QRS Dur : 082 ms QT Int : 402 ms P-R-T Axes : 028 -09 004 degrees QTc Int : 510 ms Normal sinus rhythm RSR' or QR pattern in V1 suggests right ventricular conduction delay Prolonged QT Abnormal ECG Confirmed by MALLIKA IZQUIERDO, AKI ([id number]), order editor LILIA GUTIERREZ ([id number]) on 06/15/2017 3:49:20 PM Referred By: Confirmed By:AKI TENA MD
--- NOTE | 2017-07-11 15:21 | STRESS ---
Acquisition Time: 2017-05-20 12:49:51 Total Exercise Time: 00:01:00 Test Indications: CHEST PAIN Medications: Protocol: LEXISCAN Max HR: 097 BPM 63% of Pred: 152 BPM Max BP: 138/068 mmHG Max Work Load: 1.0 METS RESTING ECG: NORMAL SINUS RHYTHM AT 78 BPM WITH NON-SPECIFIC ST SEGMENT AND T-WAVE CHANGES SYMPTOMS: DYSPNEA NORMAL BP RESPONSE ECTOPY: NONE ECG STRESS: NO SIGNIFICANT CHANGES INTERPRETATION: INDETERMINATE ECG/AWAIT NUCLEAR IMAGES FOR DEFINITIVE DIAGNOSIS Confirmed by DEBBIE JENNINGS ELLEN ([id number]) on 07/11/2017 3:21:14 PM Referred By: MD Christine RICHEY Confirmed By:CARMEL JENNINGS PA-C
== END 2017-05-23 11:24 | disposition home or self-care (01) | DRG 193 ==
LOC: ERS 04:11 → 2SW 07:53 → OBSVTOIN 05-21 09:07 → ONC 05-21 15:09
PROVIDERS: ADMIT Internal Medicine; ATTEND Internal Medicine
DX: J18.8 Other pneumonia, unspecified organism (principal); J96.01 Acute respiratory failure with hypoxia; M32.13 Lung involvement in systemic lupus erythematosus; I11.0 Hypertensive heart disease with heart failure; I50.9 Heart failure, unspecified; E87.1 Hypo-osmolality and hyponatremia; M31.8 Other specified necrotizing vasculopathies; D64.9 Anemia, unspecified; I10 Essential (primary) hypertension; E16.2 Hypoglycemia, unspecified; G89.29 Other chronic pain; E87.6 Hypokalemia
CPT/HCPCS: 36415; 36416; 71045; 71275; 78452; 80048; 80053; 80061; 81001; 82550; 82553; 83605; 83880; 84484; 85025; 85379; 85610; 85730; 87040; 87086; 93005; 93017; 93306; 93970; 94640; 94760; 96374; 96375; A4216; A9500; J1650; J1940; J2543; J2785; J2920; J3370; J7050; J7500; J7611

== ENCOUNTER 2017-07-07 14:10 | Inpatient (IN) | payer MEDICARE ==
[~2017-07-07 14:10] MED LIST: ISOVUE-370 76%-LOCM 1 ML ONE
[2017-07-07 14:52] LABS: INR-International Normal Ratio 1.1; Prothrombin Time 13.8 SEC (12.0-14.7)
[2017-07-07 14:53] LABS: Hemoglobin 12.4 g/dL (12.0-16.0); Mean Corpuscular HGB CONC 34.5 g/dL (32.0-36.0); Mean Corpuscular Hemoglobin 30.3 pg (27.0-31.0); Mean Corpuscular Volume 87.7 fl (81.0-99.0); Mean Platelet Volume 7.4 fL (7.4-10.4); Platelet Count 187 thou/uL (130-400); RBC Distribution Width 16.4 % (11.5-14.5); White Blood Cell (WBC) Count 3.5 thou/uL (4.8-10.8)
[2017-07-07 14:53] LABS: PTT 35.5 SEC (22.9-36.1)
[2017-07-07 14:59] LABS: ALT (SGPT) 8 U/L (8-55); AST (SGOT) 32 U/L (5-34); Albumin 3.3 g/dL (3.4-4.8); Alkaline Phosphatase 145 U/L (40-150); Anion Gap 13 mmol/L (10-20); BUN (Urea Nitrogen) 12 mg/dL (9.8-20.1); Bilirubin, Total 0.5 mg/dL (0.2-1.2); CK (CPK) 118 U/L (29-168); Calc. Creatinine Clearance 0 mL/min (70-130); Calcium 9.2 mg/dL (7.8-10.44); Carbon Dioxide 22 mmol/L (23-31); Chloride 97 mmol/L (98-107); Estimated GFR-MDRD 43; Globulin 3.1 g/dL (2.4-3.5); Glucose 81 mg/dL (80-115); Potassium 4.2 mmol/L (3.5-5.1); Protein, Total 6.4 g/dL (6.0-8.3); Sodium 128 mmol/L (136-145)
[2017-07-07 15:05] LABS: CKMB 2.4 ng/mL (0-6.6); Troponin I Less than 0.010 ng/mL (< 0.028)
[2017-07-07 15:21] LABS: Anisocytosis SLIGHT = 6-15 cells (100X) (0-5/hpf); Band 1 % (5-11); Lymphocytes 20 % (21-51); MDiff Complete? YES; Monocytes 6 % (0-10); Neutrophil 73 % (42-75); PLT Morphology Comment Appears Adequate
[2017-07-07] MEDS ORDERED: Ondansetron ODT 8 MG TAB ONE (15:39)
[2017-07-07 16:13] LABS: Bilirubin Negative (Negative); Blood, Urine Negative (Negative); Clarity CLEAR (Clear); Glucose, Urine (Dipstick) Negative (Negative); Leukocyte Small (Negative); Nitrite Negative (Negative); Protein, Urine (Dipstick) Negative (Neg-Trace); Specific Gravity, Urine 1.018 (1.002-1.036); Urobilinogen 0.2 mg/dL (0.2-1.0)
[2017-07-07 16:14] LABS: Bacteria/HPF None Seen HPF (None Seen); Hyaline Casts/LPF 0-3 HYALINE CAST LPF (0-3 Hyaline); Pathc Cast-AUWi Flag 0.29 (0-2.49); RBC/HPF 0-3 HPF (0-3); Squamous Epithelial 0-3 HPF (0-3); WBC/HPF 0-3 HPF (0-3)
--- NOTE | 2017-07-07 16:27 | RAD ---
PORTABLE AP CHEST X-RAY 07/07/17 HISTORY: Dyspnea, shortness of breath. COMPARISON: 05/21/07. FINDINGS: The cardiac silhouette is magnified by projection. There is increased interstitial opacities bilatera lly. There is eventration of the left hemidiaphragm which limits evaluation of the left lung base. Va scular calcifications seen in the thoracic aorta. Vertebroplasty changes are seen involving multiple thoracic as well as upper lumbar vertebral bodies. No other interval change. IMPRESSION: Increased interstitial opacities throughout the lungs bilaterally which could be related to either in fectious process or pulmonary edema. POS: [facility]
--- NOTE | 2017-07-07 16:27 | CT ---
CT ARTERIOGRAM NECK WITH IV CONTRAST AND 3D MIP IMAGING CT ARTERIOGRAM HEAD WITH IV CONTRAST AND 3D MIP IMAGING: CT HEAD WITH IV CONTRAST CT PERFUSION BRAIN: HISTORY: Acute onset left-sided weakness. FINDINGS: There is normal branching of the great vessels from the aortic arch with mild aortic calcification. Carotid and vertebral arteries are patent. No significant plaque of the carotid bifurcations. Arter ies widely patent. [place] of [place] is patent. No focal aneurysm or embolus. Perfusion images show heterogeneous uptake, partially related to motion. No focal perfusion defects are apparent. No abnormal areas of intracranial enhancement. Subtle low density at the right basal ganglia on nonc ontrast CT head may be related to an old area of chronic ischemic small-vessel disease or be related to motion and artifact. IMPRESSION: 1. No acute intracranial abnormalities are demonstrated. 2. Mild atherosclerosis. Findings were discussed with Dr. Mitchell in the emergency department at 1540 hours. CODE CR POS: [facility]
[2017-07-07 16:28] LABS: Amphetamine Not Detected (NotDetected); Barbiturates Screen Not Detected (NotDetected); Benzodiazepine Screen Not Detected (NotDetected); Cocaine Metabolite Screen Not Detected (NotDetected); Medtox Control Line Valid? VALID (VALID); Medtox Reader # READER 1; Methadone Not Detected (NotDetected); Methamphetamine Not Detected (NotDetected); Opiate Screen Not Detected (NotDetected); Oxycodone Screen Not Detected (NotDetected); Phencyclidine (PCP) Not Detected (NotDetected); THC/Cannabinoid Screen Not Detected (NotDetected); Tricyclic Screen Not Detected (NotDetected)
[2017-07-07] MEDS ORDERED: cefTRIAXone\\ROCEPHIN 2 GM VIAL ONE (16:45)
[2017-07-07] MEDS ORDERED: Acetaminophen 325 MG TAB PO PRN (18:13)
[2017-07-07] MEDS ORDERED: Ondansetron HCl/PF 4 MG/2 ML Vial IVP PRN (18:13)
[2017-07-07] MEDS ORDERED: HYDROcodone/Acetaminophen 5/325 mg Tablet PO PRN (18:13)
[2017-07-07] MEDS ORDERED: Ondansetron ODT 4 MG TAB PO PRN (18:13)
[2017-07-07] MEDS ORDERED: Azithromycin 500 MG VIAL ONE (18:17)
[2017-07-07] MEDS ORDERED: Dextrose 5% in Water 1,000 ML IV PRN (18:42)
[2017-07-07] MEDS ORDERED: Dextrose 50% Abboject 50 ML SYRINGE SLOW IVP PRN (18:42)
[2017-07-07 19:41] LABS: Anion Gap 14 mmol/L (10-20); BUN (Urea Nitrogen) 12 mg/dL (9.8-20.1); Calc. Creatinine Clearance 0 mL/min (70-130); Carbon Dioxide 22 mmol/L (23-31); Chloride 99 mmol/L (98-107); Estimated GFR-MDRD 55; Potassium 3.5 mmol/L (3.5-5.1); Sodium 131 mmol/L (136-145)
[2017-07-07 19:42] LABS: ALT (SGPT) 8 U/L (8-55); AST (SGOT) 26 U/L (5-34); Albumin 3.2 g/dL (3.4-4.8); Alkaline Phosphatase 142 U/L (40-150); Bilirubin, Total 0.4 mg/dL (0.2-1.2); Calcium 8.9 mg/dL (7.8-10.44); Globulin 2.7 g/dL (2.4-3.5); Glucose 80 mg/dL (80-115); Protein, Total 5.9 g/dL (6.0-8.3)
[2017-07-07 19:44] LABS: Troponin I Less than 0.010 ng/mL (< 0.028)
--- NOTE | 2017-07-07 19:52 | HP ---
PRIMARY CARE PHYSICIAN: Dr. Washington. CHIEF COMPLAINT: Shortness of breath. HISTORY OF PRESENT ILLNESS: This is a 66-year-old female with a known history of lupus who was recently admitted and discharged approximately a little over a month ago for lupus pneumonitis who presents with again persistent shortness of breath over the last few days. She has been complaining of a productive cough with greenish tannish sputum and subjective fevers at home which she has occasionally measured to be 99 degrees. The patient herself is unfortunately a tangential historian. She is accompanied by her daughter today. Patient lives at home with her who is not at bedside. The patient's daughter states that the patient has also been demonstrating this altered mentation predominantly described as inability to answer questions directly and inability to complete a conversation for probably about the last 1-2 days. REVIEW OF SYSTEMS: As per HPI. Constitutional: Fevers as described above. The patient also endorses overall chills. Denies any overt weight loss or gain. HEENT: Denies any headaches or vision changes. Endorses a component of lightheadedness today without any dizziness or vertigo. Cardiovascular: Denies any chest pressure or chest pain. Does endorse shortness of breath, particularly with exertion. Respiratory: Cough with sputum as above. No known recent sick contacts. No sinus congestion. Gastrointestinal: The patient describes having had a decreased appetite and not eating much over the last week. Denies any overt nausea or vomiting. She has been having 1-2 loose stools a day for the last 3 or 4 days. Genitourinary: Denies any dysuria, changes in urinary frequency, color or quantity. Musculoskeletal: The patient has a significant amount of chronic pain, but denies any new focal myalgias or arthralgias. Remainder of the review of systems otherwise negative. PAST MEDICAL HISTORY: Significant for, 1. Lupus. 2. Hypertension. 3. Gastroesophageal reflux disease. 4. Asthma. 5. Status post multiple "spine fusions" which is found in the prior documentation to represent kyphoplasty for vertebral fractures. 6. Status post hysterectomy. 7. Status post "shots" to her hips for chronic pain. FAMILY HISTORY: Significant for aneurysm and hypertension in her mother and CHF in her father. HOME MEDICATIONS: Please see the EMR for full details. I am waiting to get an updated list as a list we have is from her last hospitalization and I suspect that some of these medications have changed since then, particularly prednisone should have been tapered off completely unless it was otherwise changed on an outpatient basis. SOCIAL HISTORY: Patient lives at home with her , designates her daughter at bedside as her medical decision maker if she is unable to make her own medical decisions. The daughter and the patient endorsed that the patient would like to be FULL code including CPR and intubation if needed. PHYSICAL EXAMINATION: GENERAL: The patient is awake. She is conversant. She is lying in the hospital bed, currently on a bedpan. She is oriented only to herself. HEENT: Normocephalic, atraumatic. Slightly dry mucous membranes. Dentures are in place. No posterior oropharyngeal erythema or exudate. Equal ocular motions are intact. CARDIOVASCULAR: S1, S2. No murmurs, rubs or gallops. Soft heart tones. Pulses 2+ bilateral upper extremities, no pitting pedal edema. No carotid bruits. RESPIRATORY: Limited anterior examination secondary to patient positioning on the bedpan at this point in time. No wheezes, rales or rhonchi. Reasonable air movement No dyspnea with conversation. ABDOMEN: Positive bowel sounds, soft, nontender to palpation. NEUROLOGIC: Moving all 4 extremities independently, able to self-reposition and get on the bedpan without difficulty or assistance. LABORATORY DATA AND IMAGING: WBC 3.5, hemoglobin 12.4, hematocrit 36.0, platelets 187. PT 13.8, INR 1.1. Sodium 128, potassium 4.2, chloride 97, bicarbonate 22, BUN 12, creatinine 1.23, glucose 81. Lactic acid 1.1, calcium 9.2, total bilirubin 0.5, AST 32, ALT 8, alkaline phosphatase 145, creatine kinase 118, troponin less than 0.01. BNP natriuretic peptide 111.4, total protein 6.4, albumin 3.3. UA is significant for small, leukoesterase. Urine drug screen is negative. IMAGING: On 07/07/2017, chest x-ray reviewed by myself. Agree with Radiology, impression: "increased interstitial opacities throughout the lungs bilaterally which could be related to either infectious process or pulmonary edema." On , CT of the brain, impression "no acute intracranial abnormalities are demonstrated. Mild atherosclerosis." Of note, also was noted on the CT of the head, a subtle low density at the right basal ganglia. A Noncontrast CT of the head may be related to an old area of chronic ischemic small vessel disease or related to motion and artifact. ASSESSMENT AND PLAN: This is a 66-year-old female presenting with a chief complaint of shortness of breath. 1. Shortness of breath in the setting with chest x-ray findings. Patient was also noted to have some mild leukopenia and was hospitalized within the last 3 months along with mild hypotension with systolic blood pressures in the 90s. Unclear differential. Patient has received empiric ceftriaxone and azithromycin. We would broaden antibiotics to include coverage for healthcare acquired organisms as well. Obtain better imaging of the pulmonary parenchyma and rule out a PE with a CTA of the chest. Check blood cultures, check urine legionella. Check urine Strep pneumoniae antigen. Check sputum culture as well. Although would be considered very late and out of the season, swab test for possible influenza. If this is not an acute infectious etiology, could be possible recurrence of lupus pneumonitis. Patient will be placed on steroids with sliding scale insulin and close monitoring. 2. Concern for systemic inflammatory response syndrome with a leukopenia of 3.5 in the setting of borderline hypotension, systolic blood pressure in the low 90s. IV fluids. Blood cultures as noted above with empiric antibiotics as above. We will consult patient's society editor, Dr. De Guzman. 3. Slurred speech that was noted in the emergency department question of whether or not the patient sustained a TIA. Her symptoms appear significantly improved. The patient's family at bedside indicates that she has had similar episodes of slurred speech and weakness with prior hospitalizations in years past. I will obtain an MRI. There is a question of whether or not there is some basal ganglia involvement on the CT scan. Speech therapy and physical therapy consultations. 4. DIET: N.p.o. until seen by Speech. 5. Activity as tolerated. DVT prophylaxis with Lovenox. 6. Pending a medication reconciliation availability from either the patient's pharmacy or family who are bringing in her medications. Patient is FULL CODE. Admitted to telemetry. Thank you for asking me to participate in the care for the patient. Questions or concerns, contact me at [facility]. [facility] DAVID HOSPITALJony
[2017-07-07 20:00] VITALS: BMI 31.5
[2017-07-07] MEDS ORDERED: Vancomycin HCl 1.25 GM in Sodium Chloride 0.9% 250 ML 250 ML IVPB SCH (21:00)
[2017-07-07 21:08] LABS: Legionella Urinary Ag Negative (Negative); Strep pneumo Urine Ag NEGATIVE (NEGATIVE)
[2017-07-07] MEDS: Sodium Chloride 0.9% 1,000 ML IV SCH (21:23)
[2017-07-08 02:07] LABS: #Lymphocytes 0.4 thou/uL (1.20-3.40); #Monocytes 0.1 thou/uL (0.11-0.59); #Neutrophils 3.5 thou/uL (1.40-6.50); %Eosinophils 0.4 % (0.0-10.0); %Lymphocytes 8.9 % (21.0-51.0); %Monocytes 2.3 % (0.0-10.0); %Neutrophils 88.4 % (42.0-75.0); Hemoglobin 12.9 g/dL (12.0-16.0); Mean Corpuscular HGB CONC 35.5 g/dL (32.0-36.0); Mean Corpuscular Hemoglobin 30.9 pg (27.0-31.0); Mean Corpuscular Volume 87.1 fl (81.0-99.0); Platelet Count 165 thou/uL (130-400); RBC Distribution Width 16.4 % (11.5-14.5); Red Blood Cell (RBC) Count 4.17 mill/uL (4.20-5.40); White Blood Cell (WBC) Count 3.9 thou/uL (4.8-10.8)
[2017-07-08 02:26] LABS: ALT (SGPT) 7 U/L (8-55); AST (SGOT) 26 U/L (5-34); Albumin 3.5 g/dL (3.4-4.8); Alkaline Phosphatase 140 U/L (40-150); Anion Gap 16 mmol/L (10-20); BUN (Urea Nitrogen) 10 mg/dL (9.8-20.1); Bilirubin, Total 0.4 mg/dL (0.2-1.2); Calc. Creatinine Clearance 57 mL/min (70-130); Calcium 9.2 mg/dL (7.8-10.44); Carbon Dioxide 20 mmol/L (23-31); Chloride 102 mmol/L (98-107); Estimated GFR-MDRD 56; Glucose 95 mg/dL (80-115); Potassium 3.7 mmol/L (3.5-5.1); Protein, Total 6.5 g/dL (6.0-8.3); Sodium 134 mmol/L (136-145)
[2017-07-08] MEDS: Famotidine 40 MG/4 ML VIAL SLOW IVP SCH (09:00)
--- NOTE | 2017-07-08 09:11 | CON ---
DATE OF CONSULTATION: 07/08/2017. IMPRESSION: 1. Probable lacunar stroke with mild left-sided weakness. 2. Lupus. 3. Hypertension. 4. Asthma. 5. Recent pneumonitis. PLAN: 1. Continue aspirin. 2. Add Plavix, and a statin. 3. MRI of the brain. HISTORY OF PRESENT ILLNESS: Ms. Orlando is a 66-year-old female with the above noted medica l problems. Over the last 2 days, she has noted some weakness on the left side. She is also complai cecilio of shortness of breath. She was recently admitted for lupus pneumonitis. She was not having di fficulty swallowing. She thinks her vision is a bit blurrier than it used be. She has some low grad e headache, but denies any confusion or seizures. She had a CTA and CT on admission, which were both unremarkable. Her laboratory studies were all unremarkable as well. She is admitted for further ev aluation. PAST MEDICAL HISTORY: As listed above. ALLERGIES: MORPHINE, SUDAFED. SOCIAL HISTORY: No tobacco or alcohol use. FAMILY HISTORY: Noncontributory. REVIEW OF SYSTEMS: Positive for some shortness of breath, but no chest pain, no lateralizing numbnes s. PHYSICAL EXAMINATION: VITAL SIGNS: Stable. She is afebrile. HEENT: Pupils equal and reactive. Conjunctivae clear. Oropharynx clear. NECK: Supple. EXTREMITIES: There are some arthritic deformities of the joints of her hands. No cyanosis or edema noted. NEUROLOGIC: She was alert and cooperative. Her speech is fluent and clear. Cranial nerves were int act other than a subtle left nasal labial fold flattening. 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 Sensation was subjectively equal in the extremities, but diminished in the left face to light touch. Plantar responses were equivocal. She can walk ind ependently, but has a tendency to drag the left leg. IMAGING: EKG showed a sinus rhythm. SUMMARY: This is a 66-year-old woman with probable lacunar infarct resulting in some mild left-sided weakness. She was on aspirin prior to admission, I would add Plavix and a statin.
[2017-07-08] MEDS ORDERED: Lorazepam 2 MG/ML VIAL SLOW IVP SCH (10:15)
[2017-07-08] MEDS: Enoxaparin Sodium 30 MG/0.3 ML SYRINGE SC SCH (10:28)
[2017-07-08 10:40] LABS: ALT (SGPT) 11 U/L (8-55); AST (SGOT) 27 U/L (5-34); Albumin 3.8 g/dL (3.4-4.8); Alkaline Phosphatase 146 U/L (40-150); Anion Gap 16 mmol/L (10-20); BUN (Urea Nitrogen) 11 mg/dL (9.8-20.1); Bilirubin, Total 0.4 mg/dL (0.2-1.2); Calc. Creatinine Clearance 59 mL/min (70-130); Calcium 9.5 mg/dL (7.8-10.44); Carbon Dioxide 18 mmol/L (23-31); Chloride 104 mmol/L (98-107); Estimated GFR-MDRD 58; Globulin 3.5 g/dL (2.4-3.5); Glucose 99 mg/dL (80-115); Protein, Total 7.3 g/dL (6.0-8.3); Sodium 134 mmol/L (136-145)
[2017-07-08] MEDS: Sodium Chloride 0.9% 1,000 ML IV SCH ×2 (12:51→15:15)
--- NOTE | 2017-07-08 12:56 | MRI ---
BRAIN MRI WITHOUT CONTRAST: History: New onset slurred speech. CVA. Comparison: None. Technique: Brain MRI is performed without intravenous gadolinium administration. Multisequential, mul tiplanar imaging performed. FINDINGS: Calvarium has a normal T1 marrow signal intensity. Midline brain parenchymal structures are unremarka ble. NO hemorrhage on the axial gradient echo sequence. No mass, mass effect, or midline shift. Brain volume is age appropriate. [place] white matter d ifferentiation is preserved. Ventricles and sulci are patent and symmetric. No significant T2 and FLAIR white matter hyperintensities. Central arterial flow voids are maintained. Absent restricted diffusion. Bilateral ocular lenses are identified. IMPRESSION: Absent restricted diffusion; no acute infarct. POS: [facility]
--- NOTE | 2017-07-08 16:00 | CT ---
CT ARTERIOGRAM CHEST WITH IV CONTRAST AND 3D MIP IMAGING 07/08/17 HISTORY: Chest pain. Dyspnea. Hypotension. COMPARISON: 05/20/17. FINDINGS: There is good contrast opacification of the pulmonary arteries and thoracic aorta with normal branchi ng of the great vessels. Calcification within the arterial structures includes the coronary arteries. Mild peripheral interstitial prominence is less pronounced than on the previous study. No mediastina l adenopathy. On the inferior most images, contrast material within the gallbladder is likely related to recent CT arteriogram of the head. IMPRESSION: 1. No CT evidence of pulmonary embolus. 2. Atherosclerosis. POS: [facility]
--- NOTE | 2017-07-08 16:48 | PDOC.PN ---
- Subjective Encounter Start Date: 07/08/17 Encounter Start Time: 16:47 Subjective: nsg notes rev, obdulio ovn, feels SOB with mild exertion (walking to bathroom -: transferring from wheelchair to bed) but overall reports feeling better -: more directed answering of questions, speech subjectively less slurred - Objective Resuscitation Status: Resuscitation Status FULL:Full Resuscitation Vital Signs & Weight: Vital Signs (12 hours) Temp Pulse Pulse Pulse Resp BP BP 07/08/17 15:00 98.2 F 99 15 07/08/17 13:53 102 H 12 07/08/17 12:00 98.8 F 99 16 07/08/17 10:55 100 108 H 121/62 89/67 L 07/08/17 07:57 98.6 F 99 15 07/08/17 07:39 97.5 F L 91 16 BP Pulse Ox 07/08/17 15:00 129/64 97 07/08/17 13:53 07/08/17 12:00 116/54 L 97 07/08/17 10:55 07/08/17 07:57 116/58 L 97 07/08/17 07:39 Weight Weight 145 lb 12.8 oz I&O: 07/07/17 07/08/17 07/09/17 06:59 06:59 06:59 Intake Total 1200 1210 Balance 1200 1210 Result Diagrams: 07/08/17 01:59 07/08/17 10:09 Additional Labs: Accuchecks 07/08/17 07/08/17 07/08/17 16:09 12:15 08:07 POC Glucose 118 H 105 112 H 07/08/17 07/08/17 04:21 00:21 POC Glucose 115 H 92 Phys Exam - Physical Examination Constitutional: NAD lying in hospital bed HEENT: moist MMs, sclera anicteric, oral pharynx no lesions Respiratory: no wheezing, no rales, no rhonchi, clear to auscultation bilateral diminished throughout Cardiovascular: RRR, no significant murmur, no rub Gastrointestinal: soft, positive bowel sounds Musculoskeletal: no edema Neurological: moves all 4 limbs Psychiatric: normal affect Dx/Plan - Plan * 66F who initially p/w CC fevers, cough, dyspnea with exertion Dyspnea with exertion broad ddx - does not appear to have pna on CTA, no PE ? lupus pneumonitis? apprec pulm c/s ? further cardiac exploration as etiology? no further fevers, cough - leukopenia appears to be improving on empiric abx hyponatremia * improved * continue with hydration slurred speech c/w TIA * apprec neuro c/s * on ASA and plavix * MRI is unrevealing for new infarct diet: modified cardiac activity: PT c/s dvt ppx Review of Systems - Medications/Allergies Allergies/Adverse Reactions: Allergies Allergy/AdvReac Type Severity Reaction Status Date / Time pseudoephedrine Allergy Verified 05/20/17 11:08 [From Sudafed] morphine AdvReac Intermediate Verified 08/26/16 14:48 Medications: Current Medications Acetaminophen (Tylenol) 650 mg PO Q4H PRN PRN Reason: Headache/Fever or Pain Hydrocodone Bitart/Acetaminophen ([place] 5/325) 1 tab PO Q4H PRN PRN Reason: Moderate Pain (4-6) Albuterol/Ipratropium (Duoneb) 3 ml NEB [id number] PRN PRN Reason: SOB &/or Wheezing Last Admin: 07/08/17 13:53 Dose: 3 ml Aspirin (Aspirin) 325 mg PO DAILY [facility] Dextrose/Water (Dextrose 50%) 25 gm SLOW IVP PRN PRN PRN Reason: Hypoglycemia Enoxaparin Sodium (Lovenox) 30 mg SC 0900 [facility] Last Admin: 07/08/17 10:28 Dose: 30 mg Famotidine (Pepcid) 20 mg SLOW IVP DAILY [facility] Last Admin: 07/08/17 09:00 Dose: Not Given Gabapentin (Neurontin) 300 mg PO BID [facility] Glucagon (Glucagon) 1 mg IM PRN PRN PRN Reason: Hypoglycemia Azithromycin 500 mg/ Sodium (Chloride) 250 mls @ 250 mls/hr IVPB Q24HR [facility]NY Ceftriaxone Sodium 2 gm/ (Sodium Chloride) 100 mls @ 200 mls/hr IVPB Q24HR [facility] Sodium Chloride (Normal Saline 0.9%) 1,000 mls @ 100 mls/hr IV .Q10H [facility] Last Admin: 07/08/17 15:15 Dose: Not Given Dextrose/Water (D5w) 1,000 mls @ 0 mls/hr IV .Q0M PRN; As Directed PRN Reason: Hypoglycemia Vancomycin HCl 750 mg/ Sodium (Chloride) 250 mls @ 250 mls/hr IVPB 2100 [facility] Insulin Human Lispro (Humalog) 0 units SC .MILD SLIDING SCALE PRN PRN Reason: Mild Correctional Scale Methylprednisolone Sodium Succinate (Solu-Medrol) 40 mg IVP 0200,0800,1400, 1999 [facility] Last Admin: 07/08/17 16:09 Dose: 40 mg Miscellaneous Medication (Pharmacy To Dose) 1 each IVPB PRN PRN PRN Reason: Pharmacy to dose Ondansetron HCl (Zofran Odt) 4 mg PO Q6H PRN PRN Reason: Nausea/Vomiting Ondansetron HCl (Zofran) 4 mg IVP Q6H PRN PRN Reason: Nausea/Vomiting Sodium Chloride (Flush - Normal Saline) 10 ml IVF PRN PRN PRN Reason: Saline Flush
[2017-07-08] MEDS ORDERED: cefTRIAXone\\ROCEPHIN 2 GM in Sodium Chloride 0.9% 100 ML IVPB SCH (18:00)
[2017-07-08] MEDS: Azithromycin 500 MG in Sodium Chloride 0.9% 250 ML 250 ML IVPB SCH (18:12)
[2017-07-08] MEDS ORDERED: Vancomycin HCl 750 MG in Sodium Chloride 0.9% 250 ML 250 ML IVPB SCH (21:00)
[2017-07-08] MEDS: Gabapentin 300 MG CAP PO SCH (21:36)
--- NOTE | 2017-07-09 00:22 | CON ---
DATE OF SERVICE: 07/08/2017 SERVICE: Pulmonary Medicine. REASON FOR CONSULTATION: Pneumonitis. 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 She was in her usual state of health when she started having increasing shortness of breath. This was reminiscent of previous flares of her lupus. She subsequently presented to the emergency department. A chest x-ray demonstrated interstitial pattern. She was put on some antibiotics and steroids. She was not really having any fevers. She is coughing up some clear/frothy mucus. There is a little bit of pale yellow sputum in anywhere within it. Otherwise, she is in her usual state of health. PAST MEDICAL HISTORY: 1. Systemic lupus erythematosus. 2. Gastroesophageal reflux disease. 3. Hypertension. 4. Asthma. PAST SURGICAL HISTORY: 1. Hysterectomy. 2. Vertebroplasty. 3. Hip injections. FAMILY HISTORY: Noncontributory. SOCIAL HISTORY: Negative for any alcohol, tobacco, or illicit drug use. She has no exposure to chemicals, dust, asbestos or tuberculosis. ALLERGIES: PSEUDOEPHEDRINE, MORPHINE. MEDICATION LIST: Her inpatient medications were reviewed. No specific updates were made at this time. REVIEW OF SYSTEMS: General, head, ears, eyes, nose, throat, cardiovascular, respiratory, GI, , musculoskeletal, neurologic and skin is negative except as mentioned in the HPI. PHYSICAL EXAMINATION: VITAL SIGNS: Afebrile with a T-max of 99.1, pulse 100, blood pressure 118/58, respirations 16, saturation 98% on room air. GENERAL: The patient is awake and alert. She is in no apparent distress. HEART: Normal rate, regular. LUNGS: Good air entry. There is no prolonged expiratory phase or wheezing. There are crackles present bilaterally, but much more extensive in the left side. ABDOMEN: Soft, nontender, nondistended. Bowel sounds are positive. MUSCULOSKELETAL: No cyanosis or clubbing. There is no pitting in the bilateral lower extremities. NEUROLOGIC: Grossly nonfocal. LABORATORY DATA: WBC 3.9, hemoglobin 12.9, platelets 165,000. Neutrophil count is 88%. INR 1.1. Basic metabolic profile and liver function studies are unremarkable. Blood sugars ranged from 105 to 118. Urinalysis is unremarkable. There are no significant white blood cells or red blood cells identified. Urine drug screen is negative. Strep and legionella urine antigens are unremarkable. Influenza A and B is negative. Blood cultures x2 and urine culture are also unremarkable. IMAGING: Echocardiogram from 05/2017 demonstrates diastolic dysfunction with a normal ejection fraction. Left atrium was mildly dilated. Mild mitral regurgitation was also present. CTA of the chest demonstrates no significant pulmonary embolism. There is no overt infiltrate. There is interstitial fullness throughout bilateral lung [place], which are actually significantly improved compared to prior. MRI of the brain demonstrates no acute infarction. There is absent restricted diffusion. CTA of the head and neck demonstrates no acute intracranial abnormality. Mild atherosclerosis is identified. CT of the brain demonstrates no acute intracranial abnormality. ASSESSMENT: 1. Acute on chronic diastolic heart failure, minimal. 2. 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 3. Community-acquired pneumonia, possible. DISCUSSION AND PLAN: I really do not see a massive infiltrate on the CT scan. My suspicion is that she has got some interstitial fullness. I do not know if it is chronic or acute. It could be volume mediated. We will go ahead and deescalate her steroids and 40 mg of prednisone on a daily basis. We can taper this thing away over a period of time specified by Dr. De Guzman on Tuesday. I will continue the azithromycin, but dropped the Rocephin. We will get a respiratory virus panel. IV fluids will also be interrupted. Pulmonary Critical Care will continue to follow along while the patient remains in this location. 70 minutes have been devoted to this patient in various activities. I personally reviewed all imaging studies and laboratory data noted within this document. For fifty percent of this time, I was interacting with the patient at the bedside or coordinating care with the care team. For the remainder of the time I was immediately available to the patient in the hospital unit. BERNARD
[2017-07-09 05:12] LABS: #Lymphocytes 0.5 thou/uL (1.20-3.40); #Monocytes 0.3 thou/uL (0.11-0.59); #Neutrophils 3.3 thou/uL (1.40-6.50); %Basophils 0.2 % (0.0-1.0); %Eosinophils 0.3 % (0.0-10.0); %Lymphocytes 11.5 % (21.0-51.0); %Monocytes 7.8 % (0.0-10.0); %Neutrophils 80.3 % (42.0-75.0); Hemoglobin 10.7 g/dL (12.0-16.0); Mean Corpuscular HGB CONC 34.1 g/dL (32.0-36.0); Mean Corpuscular Volume 87.8 fl (81.0-99.0); Mean Platelet Volume 7.1 fL (7.4-10.4); Platelet Count 144 thou/uL (130-400); RBC Distribution Width 16.5 % (11.5-14.5); Red Blood Cell (RBC) Count 3.57 mill/uL (4.20-5.40); White Blood Cell (WBC) Count 4.1 thou/uL (4.8-10.8)
[2017-07-09 05:42] LABS: ALT (SGPT) 7 U/L (8-55); AST (SGOT) 19 U/L (5-34); Albumin 3.3 g/dL (3.4-4.8); Alkaline Phosphatase 105 U/L (40-150); Anion Gap 11 mmol/L (10-20); BUN (Urea Nitrogen) 14 mg/dL (9.8-20.1); Bilirubin, Total 0.3 mg/dL (0.2-1.2); Calc. Creatinine Clearance 66 mL/min (70-130); Calcium 8.8 mg/dL (7.8-10.44); Carbon Dioxide 22 mmol/L (23-31); Chloride 107 mmol/L (98-107); Estimated GFR-MDRD 67; Globulin 2.6 g/dL (2.4-3.5); Glucose 129 mg/dL (80-115); Potassium 3.9 mmol/L (3.5-5.1); Protein, Total 5.9 g/dL (6.0-8.3); Sodium 136 mmol/L (136-145)
[2017-07-09] MEDS: Gabapentin 300 MG CAP PO SCH ×2 (09:40→20:24)
[2017-07-09] MEDS: Enoxaparin Sodium 30 MG/0.3 ML SYRINGE SC SCH (09:40)
[2017-07-09] MEDS: Famotidine 40 MG/4 ML VIAL SLOW IVP SCH (09:40)
[2017-07-09] MEDS: Furosemide 20 MG/2 ML VIAL SLOW IVP SCH (09:40)
[2017-07-09] MEDS: Aspirin 325 MG TAB PO SCH (09:40)
[2017-07-09] MEDS: predniSONE 20 MG TAB PO SCH (09:40)
--- NOTE | 2017-07-09 12:17 | PRG ---
DATE OF SERVICE: 07/09/2017 SERVICE: Pulmonary Medicine. INTERVAL HISTORY: The patient is doing really well from a respiratory standpoint. She denies any chest pain, nausea, or vomiting. She is coughing up a little bit of sputum. Otherwise, there has been no interval change to her condition. She had no events overnight. PHYSICAL EXAMINATION: VITAL SIGNS: Afebrile, pulse 77, blood pressure 105/55, respirations 16, and saturation 93% on room air. GENERAL: The patient is awake, alert, in no apparent distress. LUNGS: Decent air entry with no prolonged expiratory phase. Crackles are present bilaterally. No wheezing or rhonchi are appreciated. HEART: Normal rate, regular. ABDOMEN: Soft, nontender, nondistended. Bowel sounds are positive. MUSCULOSKELETAL: No cyanosis or clubbing. There is no pitting in the bilateral lower extremities. NEUROLOGIC: Grossly nonfocal. LABORATORY DATA: WBC 4.1, hemoglobin 10.7, and platelets 144,000. Basic metabolic profile, liver function studies are unremarkable. Urinalysis is negative. Respiratory virus panel is negative. Respiratory culture, blood culture x2, Influenza A and B are all unremarkable. ASSESSMENT: 1. Acute on chronic diastolic heart failure, minimal. 2. History of systemic lupus erythematosus with pulmonary alveolar hemorrhage syndrome. 3. Acute bronchitis, possible. DISCUSSION AND PLAN: We will give her a dose of Lasix today. We will recheck electrolytes tomorrow morning. We will continue our empiric steroids directed at inflammatory lung conditions. That being said, I am not entirely convinced that we are dealing with a big lupus flare at this point. Azithromycin can be discontinued. Azithromycin can be discontinued after 5 days. Ultimately, steroid course will be determined by Dr. De Guzman when he returns on Tuesday. BERNARD
--- NOTE | 2017-07-09 13:07 | PDOC.PN ---
- Subjective Encounter Start Date: 07/09/17 Encounter Start Time: 13:05 Subjective: nsg notes rev, obdulio ovn, still SOB with mild exertion but reports it feels -: better - Objective Resuscitation Status: Resuscitation Status FULL:Full Resuscitation Vital Signs & Weight: Vital Signs (12 hours) Temp Pulse Resp BP BP Pulse Ox 07/09/17 11:45 98.3 F 83 16 109/57 L 99 07/09/17 10:36 98 16 07/09/17 08:59 98.6 F 77 16 93 L 07/09/17 07:10 98.6 F 77 16 105/55 L 93 L 07/09/17 03:52 98.5 F 85 16 103/60 94 L Weight Weight 145 lb 12.8 oz I&O: 07/08/17 07/09/17 07/10/17 06:59 06:59 06:59 Intake Total 1200 2153 Output Total 100 Balance 1200 2053 Result Diagrams: 07/09/17 04:48 07/09/17 04:48 Additional Labs: Accuchecks 07/09/17 07/09/17 07/09/17 11:43 10:55 05:42 POC Glucose 139 H 106 144 H 07/08/17 07/08/17 20:44 16:09 POC Glucose 183 H 118 H Phys Exam - Physical Examination Constitutional: NAD seated in hospital bed HEENT: PERRLA, moist MMs, oral pharynx no lesions Respiratory: no wheezing, no rales, no rhonchi, clear to auscultation bilateral diminished throughout no conversational dyspnea Cardiovascular: RRR, no rub Gastrointestinal: soft, positive bowel sounds Musculoskeletal: no edema, pulses present Neurological: moves all 4 limbs Psychiatric: normal affect, A&O x 3 Dx/Plan - Plan * 66F who initially p/w CC fevers, cough, dyspnea with exertion Dyspnea with exertion broad ddx - does not appear to have pna on CTA, no PE ? lupus pneumonitis? 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 slurred speech c/w TIA * apprec neuro c/s * on ASA and plavix * MRI is unrevealing for new infarct * resolved diet: modified cardiac activity: PT c/s dvt ppx Review of Systems - Medications/Allergies Allergies/Adverse Reactions: Allergies Allergy/AdvReac Type Severity Reaction Status Date / Time pseudoephedrine Allergy Verified 05/20/17 11:08 [facility] morphine AdvReac Intermediate Verified 08/26/16 14:48 Medications: Current Medications Acetaminophen (Tylenol) 650 mg PO Q4H PRN PRN Reason: Headache/Fever or Pain Hydrocodone Bitart/Acetaminophen ([place] 5/325) 1 tab PO Q4H PRN PRN Reason: Moderate Pain (4-6) Albuterol/Ipratropium (Duoneb) 3 ml NEB [id number] PRN PRN Reason: SOB &/or Wheezing Last Admin: 07/09/17 10:36 Dose: 3 ml Aspirin (Aspirin) 325 mg PO DAILY [facility] Last Admin: 07/09/17 09:40 Dose: 325 mg Dextrose/Water (Dextrose 50%) 25 gm SLOW IVP PRN PRN PRN Reason: Hypoglycemia Enoxaparin Sodium (Lovenox) 30 mg SC 0900 [facility] Last Admin: 07/09/17 09:40 Dose: 30 mg Famotidine (Pepcid) 20 mg SLOW IVP DAILY [facility] Last Admin: 07/09/17 09:40 Dose: 20 mg Furosemide (Lasix) 20 mg SLOW IVP DAILY [facility] Last Admin: 07/09/17 09:40 Dose: 20 mg Gabapentin (Neurontin) 300 mg PO BID [facility] Last Admin: 07/09/17 09:40 Dose: 300 mg Glucagon (Glucagon) 1 mg IM PRN PRN PRN Reason: Hypoglycemia Azithromycin 500 mg/ Sodium (Chloride) 250 mls @ 250 mls/hr IVPB Q24HR [facility] Last Admin: 07/08/17 18:12 Dose: 250 mls Dextrose/Water (D5w) 1,000 mls @ 0 mls/hr IV .Q0M PRN; As Directed PRN Reason: Hypoglycemia Insulin Human Lispro (Humalog) 0 units SC .MILD SLIDING SCALE PRN PRN Reason: Mild Correctional Scale Ondansetron HCl (Zofran Odt) 4 mg PO Q6H PRN PRN Reason: Nausea/Vomiting Ondansetron HCl (Zofran) 4 mg IVP Q6H PRN PRN Reason: Nausea/Vomiting Prednisone (Prednisone) 40 mg PO QAM[facility] Last Admin: 07/09/17 09:40 Dose: 40 mg Sodium Chloride (Flush - Normal Saline) 10 ml IVF PRN PRN PRN Reason: Saline Flush
[2017-07-09] MEDS: HumaLOG 300 UNITS/3 ML VIAL SC PRN ×2 (16:03→18:51)
[2017-07-09] MEDS: Azithromycin 500 MG in Sodium Chloride 0.9% 250 ML 250 ML IVPB SCH (18:50)
[2017-07-10 04:45] LABS: #Lymphocytes 0.6 thou/uL (1.20-3.40); #Monocytes 0.6 thou/uL (0.11-0.59); #Neutrophils 3.5 thou/uL (1.40-6.50); %Basophils 0.4 % (0.0-1.0); %Eosinophils 0.1 % (0.0-10.0); %Lymphocytes 12.7 % (21.0-51.0); %Monocytes 12.8 % (0.0-10.0); Hemoglobin 9.9 g/dL (12.0-16.0); Mean Corpuscular HGB CONC 34.4 g/dL (32.0-36.0); Mean Corpuscular Hemoglobin 30.3 pg (27.0-31.0); Mean Corpuscular Volume 88.1 fl (81.0-99.0); Mean Platelet Volume 7.3 fL (7.4-10.4); Platelet Count 156 thou/uL (130-400); RBC Distribution Width 16.6 % (11.5-14.5); Red Blood Cell (RBC) Count 3.26 mill/uL (4.20-5.40); White Blood Cell (WBC) Count 4.8 thou/uL (4.8-10.8)
[2017-07-10 05:14] LABS: ALT (SGPT) 7 U/L (8-55); AST (SGOT) 17 U/L (5-34); Albumin 3.3 g/dL (3.4-4.8); Alkaline Phosphatase 93 U/L (40-150); Anion Gap 10 mmol/L (10-20); BUN (Urea Nitrogen) 16 mg/dL (9.8-20.1); Bilirubin, Total 0.3 mg/dL (0.2-1.2); Calc. Creatinine Clearance 70 mL/min (70-130); Calcium 8.5 mg/dL (7.8-10.44); Carbon Dioxide 25 mmol/L (23-31); Chloride 108 mmol/L (98-107); Estimated GFR-MDRD 71; Globulin 2.4 g/dL (2.4-3.5); Glucose 95 mg/dL (80-115); Potassium 3.5 mmol/L (3.5-5.1); Protein, Total 5.7 g/dL (6.0-8.3); Sodium 139 mmol/L (136-145)
[2017-07-10] MEDS: Enoxaparin Sodium 30 MG/0.3 ML SYRINGE SC SCH (09:27)
[2017-07-10] MEDS: predniSONE 20 MG TAB PO SCH (09:27)
[2017-07-10] MEDS: Aspirin 325 MG TAB PO SCH (09:27)
[2017-07-10] MEDS: Gabapentin 300 MG CAP PO SCH ×2 (09:28→20:31)
[2017-07-10] MEDS: Famotidine 40 MG/4 ML VIAL SLOW IVP SCH (09:28)
[2017-07-10] MEDS: Furosemide 20 MG/2 ML VIAL SLOW IVP SCH (09:28)
--- NOTE | 2017-07-10 10:36 | PDOC.PN ---
- Subjective Encounter Start Date: 07/10/17 Encounter Start Time: 10:35 cc: DYSPNEA Sub:pt c/o some dyspnea, but improving - Objective Resuscitation Status: Resuscitation Status FULL:Full Resuscitation Vital Signs & Weight: Vital Signs (12 hours) Temp Pulse Resp BP Pulse Ox 07/10/17 10:01 68 15 97 07/10/17 07:56 97.6 F 64 14 121/60 96 07/10/17 07:20 99.1 F 81 18 07/10/17 03:48 99.1 F 81 18 94/52 L 98 07/10/17 01:37 74 16 98 07/09/17 23:47 97.5 F L 66 20 119/59 L 95 Weight Weight 145 lb 12.8 oz I&O: 07/09/17 07/10/17 07/11/17 06:59 06:59 06:59 Intake Total 2153 1250 303 Output Total 100 700 Balance 2053 550 303 Result Diagrams: 07/10/17 04:22 07/10/17 04:22 Additional Labs: Accuchecks 07/10/17 07/10/17 07/10/17 08:10 05:59 01:26 POC Glucose 114 H 93 114 H 07/09/17 07/09/17 07/09/17 20:44 18:47 15:19 POC Glucose 117 H 213 H 224 H 07/09/17 07/09/17 11:43 10:55 POC Glucose 139 H 106 Dx/Plan - Plan - Physical Examination Constitutional: NAD seated in hospital bed HEENT: PERRLA, moist MMs, oral pharynx no lesions Respiratory: no wheezing, no rales, no rhonchi, clear to auscultation bilateral diminished throughout no conversational dyspnea Cardiovascular: RRR, no rub Gastrointestinal: soft, positive bowel sounds Musculoskeletal: no edema, pulses present Neurological: moves all 4 limbs Psychiatric: normal affect, A&O x 3 Dx/Plan - Plan * 66F who initially p/w CC fevers, cough, dyspnea with exertion Dyspnea with exertion + ACute diastolic CHF broad ddx - does not appear to have pna on CTA, no PE apprec pulm c/s prednisone, d/c empiric rocephin, continue with azithromycin continue lasix. improving clinically. 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
[2017-07-10] MEDS ORDERED: Vancomycin HCl 1 GM in Sodium Chloride 0.9% 250 ML 300 ML IVPB SCH (12:30)
[2017-07-10] MEDS: Vancomycin HCl 1 GM in Premix Bag 1 BAG IVPB SCH (12:58)
[2017-07-10] MEDS: Azithromycin 500 MG in Sodium Chloride 0.9% 250 ML 250 ML IVPB SCH (17:33)
[2017-07-10] MEDS: Polyethylene Glycol 3350 17 GM Packet PO SCH (20:31)
[2017-07-10] MEDS: HumaLOG 300 UNITS/3 ML VIAL SC PRN (20:38)
[2017-07-11] MEDS: Vancomycin HCl 1 GM in Premix Bag 1 BAG IVPB SCH ×2 (00:56→12:54)
[2017-07-11 04:55] LABS: #Lymphocytes 0.5 thou/uL (1.20-3.40); #Monocytes 0.4 thou/uL (0.11-0.59); #Neutrophils 2.7 thou/uL (1.40-6.50); %Eosinophils 0.2 % (0.0-10.0); %Monocytes 12.2 % (0.0-10.0); %Neutrophils 74.6 % (42.0-75.0); Mean Corpuscular HGB CONC 33.3 g/dL (32.0-36.0); Mean Corpuscular Hemoglobin 29.5 pg (27.0-31.0); Mean Corpuscular Volume 88.7 fl (81.0-99.0); Mean Platelet Volume 7.1 fL (7.4-10.4); Platelet Count 140 thou/uL (130-400); RBC Distribution Width 16.4 % (11.5-14.5); Red Blood Cell (RBC) Count 3.74 mill/uL (4.20-5.40); White Blood Cell (WBC) Count 3.6 thou/uL (4.8-10.8)
[2017-07-11 05:20] LABS: ALT (SGPT) 9 U/L (8-55); AST (SGOT) 17 U/L (5-34); Albumin 3.6 g/dL (3.4-4.8); Alkaline Phosphatase 95 U/L (40-150); Anion Gap 10 mmol/L (10-20); BUN (Urea Nitrogen) 14 mg/dL (9.8-20.1); Bilirubin, Total 0.4 mg/dL (0.2-1.2); Calc. Creatinine Clearance 77 mL/min (70-130); Calcium 8.5 mg/dL (7.8-10.44); Carbon Dioxide 26 mmol/L (23-31); Chloride 108 mmol/L (98-107); Estimated GFR-MDRD 79; Globulin 2.4 g/dL (2.4-3.5); Glucose 93 mg/dL (80-115); Potassium 3.5 mmol/L (3.5-5.1); Sodium 140 mmol/L (136-145)
[2017-07-11] MEDS: Aspirin 325 MG TAB PO SCH (08:50)
[2017-07-11] MEDS: predniSONE 20 MG TAB PO SCH (08:50)
[2017-07-11] MEDS: Polyethylene Glycol 3350 17 GM Packet PO SCH ×2 (08:51→22:10)
[2017-07-11] MEDS: Gabapentin 300 MG CAP PO SCH ×2 (08:51→22:10)
[2017-07-11] MEDS: Enoxaparin Sodium 30 MG/0.3 ML SYRINGE SC SCH (08:54)
[2017-07-11] MEDS: Furosemide 20 MG/2 ML VIAL SLOW IVP SCH (08:54)
[2017-07-11] MEDS: Famotidine 40 MG/4 ML VIAL SLOW IVP SCH (08:54)
--- NOTE | 2017-07-11 09:29 | PRG ---
DATE OF SERVICE: 07/11/2017 SUBJECTIVE: The patient is tearful and says overall she feels better. OBJECTIVE: VITAL SIGNS: Temperature 98.3, pulse 85, respirations 18, O2 sat 97% on room air, blood pressure 140 /75. HEENT: Unremarkable. NECK: No JVD. LUNGS: Clear without wheezing or rhonchi. CARDIAC: S1 and S2 regular. ABDOMEN: Soft. EXTREMITIES: No edema. LABORATORY DATA: White blood cell count 3.6, hematocrit 33.2, platelet count 140. Sodium 140, potas sium 3.5, chloride 108, CO2 of 26, BUN 14, creatinine 0.7, glucose 93. ASSESSMENT: 1. Acute on chronic diastolic heart failure. 2. History of systemic lupus erythematosus - does not seem to be exacerbated at this point. 3. Methicillin-resistant Staphylococcus aureus bronchitis. PLAN: 1. Would stop vancomycin after 5 full days of treatment. 2. Also stop Zithromax after 5 full days of treatment. 3. In regards to the steroids, I would wean them over a few weeks down to her baseline steroid dose.
--- NOTE | 2017-07-11 15:29 | PDOC.PN ---
- Subjective Encounter Start Date: 07/11/17 Encounter Start Time: 15:25 Subjective: f/u for dyspnea and bronchitis with MRSA + sputum on Vancomycin and -: Zithromax. Overall feels better with Prednisone. - Objective MAR Reviewed: Yes Vital Signs & Weight: Vital Signs (12 hours) Temp Pulse Resp BP Pulse Ox 07/11/17 11:43 98.6 F 79 18 115/69 96 07/11/17 08:00 98.3 F 85 18 140/75 97 07/11/17 07:20 98.3 F 64 18 98 07/11/17 05:00 64 18 96 07/11/17 04:34 97.5 F L 70 18 133/72 96 I&O: 07/10/17 07/11/17 07/12/17 06:59 06:59 06:59 Intake Total 300 600 Output Total 1600 Balance 300 -1000 Result Diagrams: 07/11/17 04:33 07/11/17 04:33 Additional Labs: Accuchecks 07/11/17 07/11/17 07/11/17 10:54 04:42 00:53 POC Glucose 151 H 90 116 H 07/10/17 07/10/17 20:32 15:58 POC Glucose 220 H 134 H Microbiology 07/08/17 22:45 Nasopharyngeal swab Respiratory Panel (PCR) - Final 07/08/17 18:00 Sputum Respiratory Culture - Final Methicillin resistant S.aureus 07/07/17 20:40 Nasal swab Influenza Types A,B Direct EIA - Final 07/07/17 16:05 Urine voided Urine Culture - Final 07/07/17 17:37 Venous blood - Right Hand Blood Culture - Preliminary NO GROWTH AT 48 HOURS 07/07/17 17:33 Venous blood - Left Hand Blood Culture - Preliminary NO GROWTH AT 48 HOURS Laboratory Tests 07/07/17 07/09/17 07/10/17 20:40 04:48 04:22 Hgb 10.7 L 9.9 L Ur L.pneumophila Ag Negative Ur Strep pneumoniae Ag NEGATIVE Radiology Reviewed by me: Yes (CTA chest - no PE, no acute changes) EKG Reviewed by me: Yes (Tele - SR) Phys Exam - Physical Examination Constitutional: NAD HEENT: PERRLA, moist MMs, sclera anicteric, oral pharynx no lesions Neck: no nodes, no JVD, supple diminished in bases Respiratory: no wheezing, no rales, no rhonchi, clear to auscultation bilateral S1, S2 Cardiovascular: RRR, no significant murmur, no rub, gallop Gastrointestinal: soft, non-tender, no distention, positive bowel sounds Musculoskeletal: no edema, pulses present Neurological: non-focal, normal sensation, moves all 4 limbs Psychiatric: normal affect, A&O x 3 Skin: no rash, normal turgor, cap refill <2 seconds Dx/Plan (1) Acute diastolic (congestive) heart failure Code(s): I50.31 - ACUTE DIASTOLIC (CONGESTIVE) HEART FAILURE Status: Acute Comment: Improved, continue Lasix 20mg IV daily, convert to po Lasix in 24h (2) J[place] (dyspnea on exertion) Code(s): R06.09 - OTHER FORMS OF DYSPNEA Status: Acute Comment: Multifactorial, improved overall, Duonebs q4h prn (3) Acute bronchitis Code(s): J20.9 - ACUTE BRONCHITIS, UNSPECIFIED Status: Acute Comment: MRSA + sputum, continue Zithromax and Vancomycin, transition to po option in 24h (4) Hyponatremia Code(s): E87.1 - HYPO-OSMOLALITY AND HYPONATREMIA Status: Acute Comment: stable, serial monitoring (5) SLE (systemic lupus erythematosus) Code(s): M32.9 - SYSTEMIC LUPUS ERYTHEMATOSUS, UNSPECIFIED Status: Chronic Comment: Continue Prednisone 40mg po daily - Plan continue antibiotics, 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
[2017-07-11] MEDS: Azithromycin 500 MG in Sodium Chloride 0.9% 250 ML 250 ML IVPB SCH (18:33)
[2017-07-12 00:22] LABS: Vancomycin, Trough 22.5 ug/mL
[2017-07-12] MEDS: Vancomycin HCl 1 GM in Premix Bag 1 BAG IVPB SCH (02:09)
[2017-07-12] MEDS: Vancomycin HCl 750 MG in Sodium Chloride 0.9% 250 ML 250 ML IVPB SCH ×2 (02:13→14:32)
--- NOTE | 2017-07-12 06:17 | PRG ---
DATE OF SERVICE: 07/10/2017 SERVICE: Pulmonary Medicine. INTERVAL HISTORY: The patient is doing fine from a respiratory standpoint. She denies any chest pain or fevers or chills. Her breathing is actually much more comfortable. She has been able to work with physical therapy to some extent. Otherwise, there has been no interval change to her condition. She is fairly happy with the way things are moving. OBJECTIVE: VITAL SIGNS: Afebrile, pulse 77, blood pressure 152/70, respirations 16, saturation 97% on room air. GENERAL: Patient is awake, alert, in no apparent distress. LUNGS: Excellent air entry. No prolonged expiratory phase present. Dependent crackles are minimal. HEART: Normal rate, regular. ABDOMEN: Soft, nontender, nondistended. Bowel sounds are positive. MUSCULOSKELETAL: No cyanosis or clubbing. There is trace pitting in the bilateral lower extremities. NEUROLOGIC: Grossly nonfocal. LABORATORY DATA: WBC 4.8 and improving, hemoglobin 9.9, platelets 156,000. Basic metabolic profile and liver function studies are essentially unremarkable. Blood sugars range from 93 to 134. Urinalysis is negative for red blood cells. Urine drug screen is unremarkable. Sputum is growing methicillin-resistant Staph aureus. Respiratory virus panel is unremarkable. Blood cultures x2 and urine culture negative. ASSESSMENT: 1. Acute on chronic diastolic heart failure, minimal. 2. Systemic lupus erythematosus with history of pulmonary alveolar hemorrhage syndrome. 3. Acute bronchitis, possible. DISCUSSION AND PLAN: The MRSA in the sputum is likely contaminant/ colonization. The patient really is not behaving as though she has a consolidating MRSA infection. That being said, it would be reasonable to continue these until we get final blood cultures back. Her volume overload is improving. We will provide her with 1 more dose of Lasix tomorrow morning. We will continue our steroids, empirically treating lupus pneumonitis. Though this presentation is not similar to her original presentation. Dr. De Guzman will assume care in the morning. BERNARD
[2017-07-12 06:22] LABS: #Lymphocytes 0.8 thou/uL (1.20-3.40); #Monocytes 0.5 thou/uL (0.11-0.59); #Neutrophils 2.6 thou/uL (1.40-6.50); %Basophils 0.1 % (0.0-1.0); %Eosinophils 0.5 % (0.0-10.0); %Lymphocytes 21.3 % (21.0-51.0); %Monocytes 11.8 % (0.0-10.0); %Neutrophils 66.3 % (42.0-75.0); Hemoglobin 11.2 g/dL (12.0-16.0); Mean Corpuscular HGB CONC 34.1 g/dL (32.0-36.0); Mean Corpuscular Hemoglobin 30.3 pg (27.0-31.0); Mean Corpuscular Volume 88.9 fl (81.0-99.0); Platelet Count 149 thou/uL (130-400); RBC Distribution Width 16.1 % (11.5-14.5); Red Blood Cell (RBC) Count 3.69 mill/uL (4.20-5.40); White Blood Cell (WBC) Count 3.9 thou/uL (4.8-10.8)
--- NOTE | 2017-07-12 09:30 | PRG ---
DATE OF SERVICE: 07/12/2017 The patient is awake, alert, seems to feel better. PHYSICAL EXAMINATION: VITAL SIGNS: Temperature 98.7, pulse 67, respirations 18, O2 sat 97% room air, blood pressure 136/80 . HEENT: Unremarkable. NECK: No JVD, no bruits. LUNGS: A few crackles both bases. CARDIAC: S1, S2 regular, without murmur. ABDOMEN: Soft, nontender. EXTREMITIES: No edema. LABORATORY DATA: White blood cell count 3.9, hematocrit 32.8, platelet count 149. ASSESSMENT: 1. Acute on chronic diastolic heart failure. 2. History of AMIE which does not seem to be exacerbated. 3. Methicillin-resistant Staphylococcus aureus bronchitis. PLAN: 1. Needs to finish 5 days of vancomycin. 2. Complete 5 days, Zithromax. 3. Wean steroids slowly back to baseline dose over about 2 weeks.
[2017-07-12] MEDS: Aspirin 325 MG TAB PO SCH (11:10)
[2017-07-12] MEDS: Furosemide 20 MG/2 ML VIAL SLOW IVP SCH (11:10)
[2017-07-12] MEDS: predniSONE 20 MG TAB PO SCH (11:10)
[2017-07-12] MEDS: Enoxaparin Sodium 30 MG/0.3 ML SYRINGE SC SCH (11:10)
[2017-07-12] MEDS: Polyethylene Glycol 3350 17 GM Packet PO SCH ×2 (11:11→22:08)
[2017-07-12] MEDS: Gabapentin 300 MG CAP PO SCH ×2 (11:11→22:08)
[2017-07-12] MEDS: Famotidine 20 MG TAB PO SCH (11:11)
--- NOTE | 2017-07-12 14:19 | PDOC.PN ---
- Subjective Encounter Start Date: 07/12/17 Encounter Start Time: 14:15 Subjective: f/u for MRSA + bronchitis on Vancomycin and Zithromax. Also tx with -: Prednisone and feeling better overall. - Objective MAR Reviewed: Yes Vital Signs & Weight: Vital Signs (12 hours) Temp Pulse Resp BP Pulse Ox 07/12/17 12:00 98.5 F 81 18 120/71 96 07/12/17 07:49 98.7 F 67 18 136/89 97 07/12/17 04:00 98.8 F 68 16 135/72 94 L I&O: 07/11/17 07/12/17 07/13/17 06:59 06:59 06:59 Intake Total 300 900 400 Output Total 1600 Balance 300 -700 400 Result Diagrams: 07/12/17 06:11 07/11/17 04:33 Additional Labs: Accuchecks 07/12/17 07/12/17 07/11/17 11:38 06:00 21:10 POC Glucose 89 85 146 H 07/11/17 17:01 POC Glucose 114 H Microbiology 07/08/17 22:45 Nasopharyngeal swab Respiratory Panel (PCR) - Final 07/08/17 18:00 Sputum Respiratory Culture - Final Methicillin resistant S.aureus 07/07/17 20:40 Nasal swab Influenza Types A,B Direct EIA - Final 07/07/17 16:05 Urine voided Urine Culture - Final 07/07/17 17:37 Venous blood - Right Hand Blood Culture - Preliminary NO GROWTH AT 48 HOURS 07/07/17 17:33 Venous blood - Left Hand Blood Culture - Preliminary NO GROWTH AT 48 HOURS Laboratory Tests 07/07/17 07/09/17 07/10/17 20:40 04:48 04:22 Hgb 10.7 L 9.9 L Ur L.pneumophila Ag Negative Ur Strep pneumoniae Ag NEGATIVE EKG Reviewed by me: Yes (Tele - SR in 70's) Phys Exam - Physical Examination Constitutional: NAD HEENT: PERRLA, moist MMs, sclera anicteric, oral pharynx no lesions Neck: no nodes, no JVD, supple scattered rhonchi, occasional exp wheeze S1, S2 Cardiovascular: RRR, no significant murmur, no rub, gallop Gastrointestinal: soft, non-tender, no distention, positive bowel sounds Musculoskeletal: no edema, pulses present Neurological: non-focal, normal sensation, moves all 4 limbs Psychiatric: normal affect, A&O x 3 Skin: no rash, normal turgor, cap refill <2 seconds Dx/Plan (1) Acute diastolic (congestive) heart failure Code(s): I50.31 - ACUTE DIASTOLIC (CONGESTIVE) HEART FAILURE Status: Acute Comment: Improved, convert Lasix 20mg po daily, EF 55% (2) JACKSON (dyspnea on exertion) Code(s): R06.09 - OTHER FORMS OF DYSPNEA Status: Acute Comment: Multifactorial, improved overall, Duonebs q4h prn (3) Acute bronchitis Code(s): J20.9 - ACUTE BRONCHITIS, UNSPECIFIED Status: Acute Comment: MRSA + sputum, continue Zithromax and Vancomycin, transition to po option in 24h, likely Bactrim (4) Hyponatremia Code(s): E87.1 - HYPO-OSMOLALITY AND HYPONATREMIA Status: Acute Comment: stable, serial monitoring (5) SLE (systemic lupus erythematosus) Code(s): M32.9 - SYSTEMIC LUPUS ERYTHEMATOSUS, UNSPECIFIED Status: Chronic Comment: Continue Prednisone 40mg po daily - Plan continue antibiotics, PT/OT, 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
[2017-07-12] MEDS: Azithromycin 500 MG in Sodium Chloride 0.9% 250 ML 250 ML IVPB SCH (18:24)
[2017-07-13] MEDS: Vancomycin HCl 750 MG in Sodium Chloride 0.9% 250 ML 250 ML IVPB SCH ×2 (02:51→14:20)
[2017-07-13 06:47] LABS: Hemoglobin 11.6 g/dL (12.0-16.0); Lymphocytes 21 % (21-51); MDiff Complete? YES; Mean Corpuscular HGB CONC 33.2 g/dL (32.0-36.0); Mean Corpuscular Hemoglobin 29.3 pg (27.0-31.0); Mean Corpuscular Volume 88.3 fl (81.0-99.0); Mean Platelet Volume 8.6 fL (7.4-10.4); Monocytes 11 % (0-10); Neutrophil 68 % (42-75); PLT Morphology Comment Appears Decreased; Platelet Count 101 thou/uL (130-400); RBC Distribution Width 16.1 % (11.5-14.5); Red Blood Cell (RBC) Count 3.97 mill/uL (4.20-5.40); White Blood Cell (WBC) Count 4.1 thou/uL (4.8-10.8)
[2017-07-13] MEDS: Polyethylene Glycol 3350 17 GM Packet PO SCH (08:55)
[2017-07-13] MEDS: Enoxaparin Sodium 30 MG/0.3 ML SYRINGE SC SCH (08:55)
[2017-07-13] MEDS: predniSONE 20 MG TAB PO SCH (08:55)
[2017-07-13] MEDS: Gabapentin 300 MG CAP PO SCH (08:55)
[2017-07-13] MEDS: Famotidine 20 MG TAB PO SCH (08:55)
[2017-07-13] MEDS: Aspirin 325 MG TAB PO SCH (08:55)
[2017-07-13] MEDS ORDERED: Furosemide 20 MG TAB PO SCH (09:00)
--- NOTE | 2017-07-13 10:23 | PRG ---
DATE OF SERVICE: 07/13/2017 The patient is doing well, has no complaints. She is trying to get up and walk today with assistance . PHYSICAL EXAMINATION: VITAL SIGNS: Temperature is 98.4, pulse 60, respiration 16, O2 sat 95% on room air, blood pressure 1 42/84. HEENT: Unremarkable. NECK: No JVD. CHEST: Fairly clear without wheezing or rhonchi. CARDIAC: S1 and S2 regular. ABDOMEN: Soft. EXTREMITIES: No edema. LABORATORY DATA: White blood cell count 4.1, hematocrit 35, platelet count 101. No chemistry was do ne today. ASSESSMENT: 1. Methicillin-resistant Staphylococcus aureus with bronchitis. 2. Systemic lupus erythematosus. PLAN: Should be done with 5 days of vancomycin and Zithromax. Would wean her prednisone back to her baseline dose over the next 2 weeks. As far as oral antibiotics, if she is not allergic then I thin k converting her over to doxycycline or Bactrim for an additional 5 days would be johnson. She can see me in follow up in 3-4 weeks.
[2017-07-13 11:59] VITALS: BP 127/72; TEMP 98.1
--- NOTE | 2017-07-13 13:45 | DIS ---
DATE OF ADMISSION: 07/07/2017 DATE OF DISCHARGE: 07/13/2017 DISCHARGE DIAGNOSES: 1. Acute diastolic congestive heart failure exacerbation with ejection fraction of 55%, stable. 2. Dyspnea on exertion, multifactorial, improved. 3. Acute bronchitis with methicillin-resistant Staphylococcus aureus positive sputum. 4. Hyponatremia, resolved. 5. Systemic lupus erythematosus with chronic prednisone therapy. CONSULTATIONS: Dr. De Guzman with Pulmonology Service. Dr. Bautista with Neurology Service. PERTINENT LABORATORY AND X-RAY FINDINGS: Sodium ranged between 128-140, creatinine 0.80. LFTs withi n normal limits. Troponin I negative x2. BNP 111. CBC showed a white blood cell count ranging betw een 3.6-4.8, hemoglobin ranged between 9.9-12.9. Urine drug screen dated 07/07/2017 negative. Urine Legionella pneumophila antigen negative 07/07/2017. Urine Streptococcal pneumonia antigen negative 07/07/2017. Blood cultures x2 from 07/07/2017 showed no growth at 5 days. Urine culture dated 07/07 showed 25,000-50,000 colonies of mixed skin ashtyn. Influenza A and B antigen on 07/07/2017 neg ative. Sputum culture dated 07/08/2017, positive for methicillin-resistant Staphylococcus aureus. R espiratory panel by PCR dated 07/08/[address] angiogram of the brain dated 07/07/2017 showed decreased density at the right basal ganglia. No acute infarct noted. Chronic small vessel ischemi c changes noted. Portable chest x-ray dated 07/07/2017 showed interstitial opacities bilaterally. C T of the brain without contrast dated 07/07/2017 showed no acute intracranial process. CT angiogram of the head and neck dated 07/07/2017 showed no acute process. MRI of the brain dated 07/08/[address] no acute infarct. CT angiogram of the chest dated 07/08/2017 showed no evidence for pulmonary em bolus. HOSPITAL COURSE: The patient initially presented with complaints of shortness of breath, undergoing multiple imaging modalities and evaluation during the hospital course. The patient initially underwe nt a CT imaging of the brain after questionable concern for TIA; however, MRI imaging showed no evide nce of acute infarct or intracranial process. The patient was noted with hyponatremia treated with I V normal saline correcting appropriately by the time of discharge. The patient was also placed on br oad-spectrum antibiotic therapy after concern for possible early pneumonia with Rocephin and Zithroma x. No specific evidence of pneumonia by CT angiogram of the chest; however, sputum culture did show MRSA species at which point the patient was placed on directed therapy including vancomycin and Zithr omax. The patient also continued on prednisone therapy throughout the hospital course receiving 40 m g daily. The patient was slow to clinically improve over the hospital stay with persistent dyspnea a nd oxygen requirement. The patient was evaluated by physical therapy and ambulated with use of a rol ling walker. The patient transitioned from oxygen supplementation to room air, maintaining O2 satura tions in the mid 90% range after antibiotic therapy and prednisone. The patient received directed th erapy for positive sputum for 5 days, transitioning to doxycycline 100 mg b.i.d. to complete a 7-day outpatient course. Overall, patient did remain clinically stable to remainder the hospital course, t olerating regular oral intake, ambulating with a rolling walker and voiding appropriately. I have ex amined the patient at the time of discharge and discussed laboratory studies and discharge planning a t which patient has verbalized understanding and agreement. The patient was ready for discharge on 0 07/13/2017. DISCHARGE MEDICATIONS: 1. Norvasc 10 mg 1 tab p.o. daily. 2. Aspirin 325 mg 1 tab p.o. daily. 3. Azathioprine 50 mg p.o. daily. 4. Coreg 3.125 mg p.o. b.i.d. 5. Colace 100 mg p.o. b.i.d. 6. Doxycycline 100 mg p.o. b.i.d. x5 days. 7. Lasix 10 mg 1 tab p.o. daily. 8. Gabapentin 300 mg p.o. b.i.d. 9. Hydroxychloroquine 300 mg p.o. b.i.d. 10. Protonix 20 mg p.o. daily. 11. Prednisone 10 mg 2 tabs p.o. b.i.d. x3 days, followed by 3 tabs p.o. daily x 3 days, followed by 2 tabs p.o. daily x 3 days, followed by 1 tab p.o. daily. FOLLOWUP: The patient will follow up with Dr. Kyle Washington within 7 days of discharge. The patient will follow up with Dr. Taiwo De Guzman with Pulmonology Service in 2 or 3 weeks after discharge. CONDITION ON DISCHARGE: Stable. ACTIVITY: Ad maria elena. DIET: Heart healthy. CODE STATUS: FULL. DISPOSITION: Home, 07/13/2017. Total time preparing and coordinating discharge was 33 minutes.
[2017-07-13 14:04] LABS: Vancomycin, Trough 22.8 ug/mL
[2017-07-13] MEDS ORDERED: Vancomycin HCl 500 MG in Sodium Chloride 0.9% 100 ML IVPB SCH (15:00)
--- NOTE | 2017-07-14 18:16 | PQF ---
LARRY HOLCOMB ELIZA KUHN [id number] [facility] [place] [id number] CLINICAL DOCUMENTATION CLARIFICATION FORM: POST DISCHARGE Addendum to original discharge summary date: ____ Late entry note date: __ DATE: 07/14/17 ATTN: Please exercise your independent, professional judgment in responding to the clarification form. Clinical indicators are provided on the bottom of this form for your review Diagnosis: Acute on chronic diastolic CHF Present on Admission (POA): [ x ] Yes [ ] No [ ] Unable to determine Coding guidelines require hospitals to identify whether a diagnosis was present on admission (POA) or not. To accurately assign the appropriate POA indicator, this information must be clearly documented within the medical record. CLINICAL INDICATORS - SIGNS / SYMPTOMS / LABS Documentation to support POA status Short of breath RISK FACTORS: Documentation to support POA status Bronchitis TREATMENT: Documentation to support POA status Christin WAGNER
== END 2017-07-13 15:42 | disposition home or self-care (01) | DRG 202 ==
LOC: ERS 14:10 → ERHOLD 17:15 → 2SE 19:46 → OBSVTOIN 07-10 11:49
PROVIDERS: ADMIT Internal Medicine; ATTEND Internal Medicine
DX: J20.8 Acute bronchitis due to other specified organisms (principal); I50.33 Acute on chronic diastolic (congestive) heart failure; E87.1 Hypo-osmolality and hyponatremia; M32.9 Systemic lupus erythematosus, unspecified; I10 Essential (primary) hypertension; J45.909 Unspecified asthma, uncomplicated; Z79.899 Other long term (current) drug therapy; K21.9 Gastro-esophageal reflux disease without esophagitis; B95.62 Methicillin resistant Staphylococcus aureus infection as the cause of diseases classified elsewhere
CPT/HCPCS: 0042T; 36415; 36416; 70450; 70496; 70498; 70551; 71045; 71275; 80053; 80202; 80306; 81003; 81015; 82553; 83605; 83880; 84484; 85025; 85610; 85730; 87040; 87070; 87077; 87086; 87186; 87205; 87633; 87798; 87804; 87899; 93005; 94640; 96361; 96365; 96367; G8978-GP-CJ; G8979-GP-CJ; G8980-GP-CJ; G9165-GN-CK; G9166-GN-CI; J0456; J0696; J1650; J1940; J2060; J2920; J3370; J7050; J7506; J7620

== ENCOUNTER 2018-04-28 13:55 | Day surgery (SDC) | payer MEDICARE ==
[2018-04-28] MEDS ORDERED: Fentanyl 100 MCG/2 ML VIAL ONE (14:58)
[2018-04-28] MEDS ORDERED: PHENYLEPHRINE-NS 100 MCG/ML 10 ML SYRINGE ONE (15:53)
[2018-04-28] MEDS ORDERED: Lidocaine 1% PF 5 ML VIAL ONE (15:53)
[2018-04-28] MEDS ORDERED: PROPOFOL 200 MG/20 ML VIAL ONE (15:53)
--- NOTE | 2018-04-28 16:25 | OP ---
DATE OF PROCEDURE: 04/28/2018 DESCRIPTION OF PROCEDURE: After informed consent was obtained, the patient was placed in the left lateral decubitus position. Anesthesia was administered per the Anesthesia Department. Forward-viewing endoscope was inserted into esophagus under direct visualization with ease and passed to the second portion of the duodenum with ease. Second portion of duodenum and duodenal bulb were normal. The pylorus, antrum, body, fundus, and cardia were normal except for some diffuse gastritis involving the entire stomach. Some of this had the appearance of vascular ectasias, but it was not absolutely clear. Biopsies were taken from several areas. Retroflexion in the stomach revealed a small hiatal hernia. The esophagus was normal throughout. ASSESSMENT: 1. Diffuse gastritis-may represent an atypical presentation for gastric vascular ectasias. 2. Small hiatal hernia. 3. Otherwise, normal esophagogastroduodenoscopy-no blood seen in the upper GI tract. RECOMMENDATIONS: 1. May need workup for occult cirrhosis. 2. PPI. 3. Proceed with colonoscopy. DESCRIPTION OF PROCEDURE: After informed consent was obtained, the patient was placed in the left lateral decubitus position. Anesthesia was administered per the Anesthesia Department. Forward viewing colonoscope was inserted in the rectum after perianal inspection and rectal exam were normal and passed to the cecum with ease. The cecum, ileocecal valve, and appendiceal orifice were normal. The prep was excellent. The ascending, transverse, descending, sigmoid, and rectum were all normal except for left-sided diverticulosis coli. In the sigmoid region, end-to-side colocolonic anastomosis was noted that was healthy in appearance. Retroflexion in the rectum was normal. ASSESSMENT: 1. Left-sided diverticulosis coli. 2. End-to-side colocolonic anastomosis that is healthy in appearance. 3. Otherwise, normal colonoscopy. RECOMMENDATIONS: 1. Daily Citru[employer]. 2. Follow up in office in 2 to 3 weeks. Job ID: [id number]
== END 2018-04-28 17:00 | disposition home or self-care (01) ==
LOC: SDC 13:55
PROVIDERS: ATTEND Internal Medicine Gastroenterology
PROC: 0DB68ZX Excision of Stomach, Via Natural or Artificial Opening Endoscopic, Diagnostic (ICD-10-PCS; principal; 2018-04-28)
PROC: 0DJD8ZZ Inspection of Lower Intestinal Tract, Via Natural or Artificial Opening Endoscopic (ICD-10-PCS; 2018-04-28)
DX: K57.31 Diverticulosis of large intestine without perforation or abscess with bleeding (principal); K29.51 Unspecified chronic gastritis with bleeding; K44.9 Diaphragmatic hernia without obstruction or gangrene; M19.90 Unspecified osteoarthritis, unspecified site; E11.9 Type 2 diabetes mellitus without complications; I10 Essential (primary) hypertension; D61.818 Other pancytopenia; Z79.82 Long term (current) use of aspirin; Z79.899 Other long term (current) drug therapy; Z88.5 Allergy status to narcotic agent; Z90.49 Acquired absence of other specified parts of digestive tract; Z98.0 Intestinal bypass and anastomosis status
CPT/HCPCS: 88305; 88312; J2001; J2704; J3010

== ENCOUNTER 2018-10-12 07:28 | Outpatient (CLI) | payer MEDICARE ==
--- NOTE | 2018-10-12 09:41 | CT ---
CT NECK SOFT TISSUES NONCONTRAST: Date: 10-12-18 Time: 7:57 a.m. History: 68-year-old female with ICD10: K11.22, acute recurrent sialadenitis. Comparison: CT angiogram of the neck with contrast, 07-07-17. FINDINGS: In retrospect, there was very inconspicuous calcification on 07-07-17, very close to the lateral surfa ce of the left masseter muscle. This has now travelled anteriorly a short distance of approximately 1 cm. This 0.3 x 0.2 x 0.2 cm calculus is in the expected vicinity of the posterior, proximal aspect o f left Stensen duct. Furthermore, whereas previously there was almost no parotid glandular tissue (the bilateral parotid g lands were almost completely fatty replaced), now there is a large, approximately 4 x 1.5 x 4 cm soft tissue density mass broadly abutting the lateral surface of the left masseter muscle, with surroundi ng fat stranding representing edema. This mass is consistent with severe edema and swelling of the avila perficial lobe of the left parotid gland. Again noted is the severe bilateral submandibular gland atr ophy. No cervical lymphadenopathy identified by size criteria. Within the limitations of a noncontras t CT, no obvious pathology is identified involving the larynx, parapharyngeal space, posterior cervic al space, retropharyngeal space, or animal attendants and trainers space. The maxillary, sphenoid, and ethmoid sinuses ar e grossly clear. Middle ear cavities and mastoid antra are clear. Partial opacification of many of th e right mastoid air cells. IMPRESSION: 1. Interval development of moderately large mass in the region of the superficial lobe of the left pa rotid gland, probably representing severe acute left parotitis (sialadenitis) due to obstruction by a 3 mm sialolith in the proximal aspect of left Stensen duct. 2. However, follow up is recommended to rule out the possibility of malignant left parotid neoplastic tumor. 3. The right parotid gland (and previously the left parotid gland) almost completely fatty replaced. 4. Severe atrophy of bilateral submandibular glands. POS: CET
== END 2018-10-12 07:29 | disposition home or self-care (01) ==
LOC: BICCT 07:28
PROVIDERS: ATTEND Otolaryngology Otolaryngic Allergy
DX: K11.22 Acute recurrent sialoadenitis (principal); K11.8 Other diseases of salivary glands; K11.0 Atrophy of salivary gland
CPT/HCPCS: 70490

== ENCOUNTER 2018-11-09 08:42 | Outpatient (CLI) | payer MEDICARE | END 2018-11-09 08:43 | disposition home or self-care (01) | LOC: CP 08:42 | PROVIDERS: ATTEND Internal Medicine Critical Care Medicine | DX: J84.10 Pulmonary fibrosis, unspecified (principal) | CPT/HCPCS: 94060; 94727; 94729 ==

== ENCOUNTER 2018-12-06 08:58 | Outpatient (CLI) | payer MEDICARE ==
--- NOTE | 2018-12-06 09:51 | CT ---
NECK CT WITHOUT CONTRAST: DATE: 12/06/2018. COMPARISON: 10/12/2018. HISTORY: Acute sialoadenitis, history of recurrent sialoadenitis, mass on the left side of the face. TECHNIQUE: Axial CT imaging is obtained at 2.5 mm intervals through the neck without contrast. Coronal and sagi ttal reformatted imaging obtained. FINDINGS: The visualized lung apices demonstrate mild increased linear interstitial density on the left. There is multifocal atherosclerotic calcification of the aortic arch. The lack of contrast media limits assessment of the aerodigestive tract, assessment of the vascular s tructures, and assessment for lymphadenopathy. Imaged brain parenchyma appears grossly unremarkable. Imaged paranasal sinuses/mastoid air cells appear well aerated. The retroantral fat appears clear bilaterally as does the parapharyngeal fat. There is fatty atrophy of bilateral submandibular glands and of parotid gland on the right. The masseter muscle on the left is thickened and enlarged when compared to the right, particularly th e superior aspect of the left masseter muscle and the lateral aspect of the masseter muscle on the left. This is inseparable from the parotid duct on the left. Left parotid duct appears thickened when compared to the right and there is associated induration of the fat along the course of the left parotid duct extending to the skin surface inseparable from the lateral margin of the masseter muscle . There is a calcification located superficially, just deep to the skin on the left measuring 3 mm, best seen on axial image 27. This calcification was present on the 10/12/2018 examination but has migra phylicia laterally. This was felt to represent a stone within the parotid duct on the left on the prior examination and thus, this may have eroded through the lateral aspect of the duct and into the adjace nt subcutaneous fat.. No discrete/measurable mass lesion is seen in this region. There is mild soft tissue nodularity in the region of the parotid gland posteriorly and inferiorly, s imilar when compared to the prior exam. Of note, on the prior examination the soft tissue density lateral to the left angle of the mandible, which included portions of the parotid gland and masseter muscle measured up to 1.7 cm in transverse dimension. This has improved when compared to the prior examination, now measuring approximately 1 cm in transverse dimension. This suggests interval improve ment of previously noted inflammatory change. Limited assessment of the tonsillar pillars, epiglottis and preepiglottic fat, hyoid bone, thyroid ca rtilage, cricoid cartilage, and thyroid gland appear unremarkable. No obvious adenopathy noted within the neck. There is mild degenerative change at the atlantoaxial interspace. At T4 and T6 there is evidence of p rior kyphoplasty. No acute osseous abnormality is noted. IMPRESSION: There is persistent inflammatory change along the course of the left parotid duct involving the elke ter muscle and superficial lobe of the parotid gland. This appears improved when compared to the prior examination. There is a superficial calcification noted just deep to the skin lateral to the pa rotid duct. Its location and interval improvement in inflammatory change suggests that this sialolith has eroded through the lateral aspect of the left parotid duct. Continued follow-up to docu ment full resolution of these findings is suggested. Transcribed Date/Time: 12/06/2018 10:13 AM
== END 2018-12-06 08:59 | disposition home or self-care (01) ==
LOC: CT 08:58
PROVIDERS: ATTEND Otolaryngology Otolaryngic Allergy
DX: K11.21 Acute sialoadenitis (principal)
CPT/HCPCS: 70490

== ENCOUNTER 2018-12-27 13:07 | Outpatient (CLI) | payer MEDICARE | END 2018-12-27 13:08 | disposition home or self-care (01) | LOC: ULT 13:07 | PROVIDERS: ATTEND Internal Medicine Critical Care Medicine | DX: R06.09 Other forms of dyspnea (principal); I08.9 Rheumatic multiple valve disease, unspecified | CPT/HCPCS: 93306 ==

== ENCOUNTER 2019-01-15 15:52 | Emergency (ER) | payer MEDICARE ==
[2019-01-15 17:30] LABS: Hemoglobin 8.7 g/dL (12.0-16.0); Mean Corpuscular HGB CONC 33.4 g/dL (32.0-36.0); Mean Corpuscular Hemoglobin 30.7 pg (27.0-31.0); Mean Corpuscular Volume 91.9 fL (78.0-98.0); RBC Distribution Width 18.9 % (11.5-14.5); Red Blood Cell (RBC) Count 2.84 mill/uL (4.20-5.40)
[2019-01-15 17:44] LABS: ALT (SGPT) 14 U/L (8-55); AST (SGOT) 43 U/L (5-34); Albumin 3.4 g/dL (3.4-4.8); Alkaline Phosphatase 192 U/L (40-110); Anion Gap 13 mmol/L (10-20); BUN (Urea Nitrogen) 17 mg/dL (9.8-20.1); Bilirubin, Total 1.2 mg/dL (0.2-1.2); Calc. Creatinine Clearance 0 mL/min (70-130); Calcium 8.5 mg/dL (7.8-10.44); Carbon Dioxide 25 mmol/L (23-31); Chloride 106 mmol/L (98-107); Estimated GFR-MDRD 39; Globulin 3.4 g/dL (2.4-3.5); Glucose 110 mg/dL (80-115); Potassium 4.1 mmol/L (3.5-5.1); Protein, Total 6.8 g/dL (6.0-8.3); Sodium 140 mmol/L (136-145)
[2019-01-15 17:50] LABS: Mean Platelet Volume 8.4 fL (7.4-10.4); Platelet Count 117 thou/uL (130-400)
[2019-01-15 17:52] LABS: #Eosinphils 0.2 thou/uL (0.0-0.7); #Lymphocytes 0.5 thou/uL (1.20-3.40); #Monocytes 0.4 thou/uL (0.11-0.59); #Neutrophils 1.8 thou/uL (1.40-6.50); %Basophils 0.5 % (0.0-1.0); %Eosinophils 6.8 % (0.0-10.0); %Lymphocytes 18.3 % (21.0-51.0); %Monocytes 12.4 % (0.0-10.0); %Neutrophils 61.9 % (42.0-75.0); Anisocytosis SLIGHT = 6-15 cells (100X) (0-5/hpf); MDiff Complete? YES; Ovalocytes SLIGHT = 2-5 cells (100X) (0-1/hpf); Platelet Morphology Comment Appears Decreased; Polychromasia SLIGHT = 2-3 cells (100X) (0-2/hpf); Schistocytes SLIGHT = 2-5 cells (100X) (0-1/hpf); Spherocytes SLIGHT = 1-5 cells (100X) (None Seen)
== END 2019-01-15 17:55 | disposition home or self-care (01) ==
LOC: ERS 15:52
DX: D64.9 Anemia, unspecified (principal); M19.90 Unspecified osteoarthritis, unspecified site; I10 Essential (primary) hypertension
CPT/HCPCS: 36415; 80053; 85025; 93005

== ENCOUNTER 2019-02-24 20:30 | Outpatient (CLI) | payer MEDICARE | END 2019-02-24 20:31 | disposition home or self-care (01) | LOC: SLEEPLAB 20:30 | PROVIDERS: ATTEND Internal Medicine Critical Care Medicine | DX: G47.33 Obstructive sleep apnea (adult) (pediatric) (principal); R06.83 Snoring; R09.89 Other specified symptoms and signs involving the circulatory and respiratory systems | CPT/HCPCS: 95810 ==

== ENCOUNTER 2019-04-20 20:30 | Outpatient (CLI) | payer MEDICARE | END 2019-04-20 20:31 | disposition home or self-care (01) | LOC: SLEEPLAB 20:30 | PROVIDERS: ATTEND Internal Medicine Critical Care Medicine | DX: G47.33 Obstructive sleep apnea (adult) (pediatric) (principal); R53.83 Other fatigue; R06.83 Snoring; G47.10 Hypersomnia, unspecified; I11.0 Hypertensive heart disease with heart failure; I50.9 Heart failure, unspecified; G47.00 Insomnia, unspecified | CPT/HCPCS: 95811 ==

== ENCOUNTER 2020-01-28 22:51 | Emergency (ER) | payer MEDICARE | END 2020-01-29 00:47 | disposition home or self-care (01) | LOC: ERS 22:51 | DX: R04.0 Epistaxis (principal); I10 Essential (primary) hypertension; M32.9 Systemic lupus erythematosus, unspecified; M19.90 Unspecified osteoarthritis, unspecified site; Z79.82 Long term (current) use of aspirin; Z79.899 Other long term (current) drug therapy | CPT/HCPCS: 99283 ==

== ENCOUNTER 2020-08-12 12:44 | Outpatient (CLI) | payer MEDICARE | END 2020-08-12 12:45 | disposition home or self-care (01) | LOC: BICRAD 12:44 | PROVIDERS: ATTEND Internal Medicine Critical Care Medicine | DX: R06.00 Dyspnea, unspecified (principal); J98.4 Other disorders of lung | CPT/HCPCS: 71046 ==

== ENCOUNTER 2020-12-23 22:56 | Emergency (ER) | payer MEDICARE ==
[2020-12-23] MEDS ORDERED: Oxymetazoline HCl 0.05% (30 ML BOT) ONE (23:40)
== END 2020-12-24 00:05 | disposition home or self-care (01) ==
LOC: ERS 22:56
DX: R04.0 Epistaxis (principal); I10 Essential (primary) hypertension; M32.9 Systemic lupus erythematosus, unspecified; M19.90 Unspecified osteoarthritis, unspecified site; J45.909 Unspecified asthma, uncomplicated; Z79.82 Long term (current) use of aspirin; Z79.899 Other long term (current) drug therapy
CPT/HCPCS: 99283

== ENCOUNTER 2023-12-14 06:35 | Day surgery (SDC) | payer MEDICARE ==
[2023-12-13 10:30] VITALS: BMI 25.7
[2023-12-14] MEDS ORDERED: PROPOFOL 20 ML ONE (07:20)
[2023-12-14] MEDS ORDERED: Lidocaine 1% PF 5 ML VIAL ONE (07:20)
[2023-12-14] MEDS ORDERED: PHENYLEPHRINE-NS 100 MCG/ML 10 ML SYRINGE ONE (08:05)
== END 2023-12-14 09:16 | disposition home or self-care (01) ==
LOC: SDC 06:35
PROVIDERS: ATTEND Internal Medicine
PROC: 0D758ZZ Dilation of Esophagus, Via Natural or Artificial Opening Endoscopic (ICD-10-PCS; principal; 2023-12-14)
PROC: 0DB68ZX Excision of Stomach, Via Natural or Artificial Opening Endoscopic, Diagnostic (ICD-10-PCS; 2023-12-14)
DX: K21.9 Gastro-esophageal reflux disease without esophagitis (principal); K29.50 Unspecified chronic gastritis without bleeding; K31.89 Other diseases of stomach and duodenum; D50.9 Iron deficiency anemia, unspecified; K44.9 Diaphragmatic hernia without obstruction or gangrene; M17.0 Bilateral primary osteoarthritis of knee; E11.9 Type 2 diabetes mellitus without complications; E78.00 Pure hypercholesterolemia, unspecified; I10 Essential (primary) hypertension; G47.33 Obstructive sleep apnea (adult) (pediatric); L93.0 Discoid lupus erythematosus; Z90.49 Acquired absence of other specified parts of digestive tract; Z79.51 Long term (current) use of inhaled steroids; Z87.19 Personal history of other diseases of the digestive system; Z79.899 Other long term (current) drug therapy; Z98.890 Other specified postprocedural states
CPT/HCPCS: 43239; 43248; J2704; 88305